=== PATIENT | male | born 1960 | race Caucasian/White ===

== ENCOUNTER 2018-06-17 08:24 | Day surgery (SDC) | payer OTHER ==
[2018-05-29 11:49] VITALS: BMI 26.8
--- NOTE | 2018-06-16 14:42 | HP ---
HISTORY AND PHYSICAL DATE OF SERVICE: 06/17/2018 Mike Marx is a 58-year-old patient seen with progressive left knee pain. We discussed treatment options. He elected to proceed with arthroscopy. Consent was obtained. PAST MEDICAL HISTORY: Hypertension, gastroesophageal reflux disease. PAST SURGICAL HISTORY: Right knee ACL reconstruction. DAILY MEDICATIONS: 1. Cardura. 2. Lisinopril. 3. Omeprazole. ALLERGIES: None reported. SOCIAL HISTORY: Patient denies tobacco use. PHYSICAL EVALUATION LEFT KNEE: Range of motion is 0 to 120 degrees. Tenderness medial joint line. Positive medial Radha's. Ligaments stable. Hip rotation without pain. Distal neurovascular exam is intact. RADIOGRAPHS OF THE LEFT KNEE: Revealed mild osteoarthritis. An MRI of the left knee revealed medial meniscal tear. IMPRESSION: 1. Internal derangement of the left knee with medial meniscal tear. 2. Hypertension. 3. Gastroesophageal reflux disease. PLAN: Left knee arthroscopy with partial meniscectomy and debridement. MMODL / IJN: [id number] /
[~2018-06-17 08:24] MED LIST: DEXAMETHASONE SOD PHOSPHATE 10 MG/ML 1 ML VIAL IV ONE; LIDOCAINE 1% 20 ML VIAL (10MG/ML) FOR IV START INTRADERMA PRN; MIDAZOLAM 2 MG/2 ML VIAL IV PRN; ONDANSETRON 4 MG/2 ML VIAL IVP ONE; SCOPOLAMINE 1.5MG/72HR PATCH TRANSDERM ONE; ceFAZolin IN SWFI 2 GM/20 ML SYRINGE IVP ONE
[2018-06-17] MEDS: LACTATED RINGERS 1,000 ML IV SCH ×2 (10:59→11:18)
[2018-06-17] MEDS ORDERED: MIDAZOLAM 2 MG/2 ML VIAL ONE (11:23)
[2018-06-17] MEDS ORDERED: fentaNYL (PF) 50 MCG/ML 2 ML AMP ONE (11:23)
[2018-06-17] MEDS ORDERED: PROPOFOL 10 MG/ML 20 ML VIAL IV ONE (11:23)
[2018-06-17] MEDS ORDERED: LIDOCAINE 1% INJ 10MG/ML (20 ML MDV) ONE (11:23)
[2018-06-17] MEDS ORDERED: ONDANSETRON 4 MG/2 ML VIAL ONE (11:23)
[2018-06-17] MEDS ORDERED: BUPIVACAIN-EPI 0.25%-1:200,000 30 ML VIAL INTRAARTIC ONE (11:41)
[2018-06-17] MEDS: HYDROmorphone 0.5 MG/0.5 ML SYRINGE IVP PRN ×4 (12:15→12:40)
[2018-06-17 12:22] VITALS: TEMP 97.1
--- NOTE | 2018-06-17 12:24 | P.OP ---
Date of Procedure: 06/17/18 Preoperative Diagnosis: Internal derangement left knee Postoperative Diagnosis: 1. Tear medial meniscus left knee 2. Reactive synovitis medial and suprapatellar compartments left knee 3. Medial plica left knee Procedure(s) Performed: 1. Arthroscopic partial medial meniscectomy left knee 2. Arthroscopic partial synovectomy medial and suprapatellar compartments left knee 3. Arthroscopic resection medial plica left knee Anesthesia: GETA, local Surgeon: Ronaldo Pham Estimated Blood Loss (ml): 5 Pathology: none sent Condition: stable Disposition: PACU Indications for Procedure: 58-year-old patient seen with progressive left knee pain. After treatment options were discussed, he elected to proceed with arthroscopy. Operative Findings: see description of procedure Description of Procedure: Patient was taken to the operative suite. Patient underwent a general anesthetic by the department of anesthesia. Patient was given preoperative antibiotics. The left lower extremity was placed in a well-padded arthroscopic leg gutierrez. The left leg was prepped and draped in the normal sterile orthopedic fashion. A lateral parapatellar and suprapatellar incision was made. Trochars were inserted. Arthroscopy was initiated. Suprapatellar pouch revealed diffuse thick reactive synovitis. The patellofemoral joint appeared articulate congruently. There was grade 1 chondromalacia with no osteochondral tears. The scope was guided into the medial gutter. There was a medial plica present. It did seem to impinge the medial femoral condyle with range of motion. The scope was then guided into the medial compartment. A medial parapatellar incision was made. Trocar inserted followed by probe. There was a complex tear involving the posterior horn medial meniscus. There was thick reactive synovitis anteriorly. No significant chondromalacia was present. I performed a partial medial meniscectomy down to stable tissue. I performed a partial synovectomy decompressing the reactive synovitis anteriorly. The residual meniscus was stable. There was good decompression of the synovitis. Scope and probe were then guided into the intercondylar notch. Cruciates were identified, probed and found to be stable. The scope and probe were then guided into lateral compartment. Lateral meniscus appeared intact with no evidence for tear. There was no significant chondromalacia. There was no synovitis. The scope was in guided back into the suprapatellar compartment. Reduced the motorized shaver into the suprapatellar compartment. I debrided some piecemeal fragments of meniscus I encountered. I resected that medial plica. I performed a partial synovectomy decompressing the thick reactive synovitis. The shaver was removed. The knee was taken through range of motion and it was complete resection of the plica. There was good decompression of synovitis. I took one more look on the entire knee, no residual debris. Instruments were now removed from the joint. The joint was infiltrated with .25 % Marcaine. Steri-Strips were applied to the portal sites. Sterile dressings were applied. The patient was placed into a LUPE hose. No tourniquet was utilized. The patient was awakened, transferred to a bed and taken to recovery stable satisfactory condition.
[2018-06-17 12:30] VITALS: RESP 16
[2018-06-17] MEDS ORDERED: HYDROcodone/APAP 7.5-325MG 1 EACH TAB PO ONE (13:14)
[2018-06-17 13:46] VITALS: BP 121/79; PULSE 85
== END 2018-06-17 14:00 | disposition home or self-care (01) ==
LOC: OR 08:24
PROVIDERS: ATTEND Orthopaedic Surgery
DX: S83.242A Other tear of medial meniscus, current injury, left knee, initial encounter (principal); X58.XXXA Exposure to other specified factors, initial encounter; M65.862 Other synovitis and tenosynovitis, left lower leg; M67.52 Plica syndrome, left knee; I10 Essential (primary) hypertension; K21.9 Gastro-esophageal reflux disease without esophagitis; Z79.899 Other long term (current) drug therapy
CPT/HCPCS: 29881; J2250; J1100; J2405; J2001; J3010; J2704; J1170; J0690

== ENCOUNTER → 2020-10-04 | Outpatient (CLI) | payer OTHER ==
--- NOTE | 2020-10-04 23:23 | MR ---
EXAMINATION TYPE: MR knee RT wo con DATE OF EXAM: 10/04/2020 COMPARISON: None HISTORY: Right knee pain, knee locks, kneecap is painful. Multiplanar multiecho imaging of the right knee was performed without contrast. Exam limited somewhat by metal artifact from pins involving the lateral aspect of the distal femur. T here is spurring of the femoral and tibial condyles. The anterior and posterior cruciate ligaments ap pear intact. There is some laxity of the anterior cruciate ligament. There is metal artifact that obs cures the attachment on the femur. There is large horizontal tear of the posterior horn lateral meniscus. There is also large horizontal tear anterior horn lateral meniscus. There is thinning of the posterior horn medial meniscus. There is abnormal increased signal throughout much of the posterior horn medial meniscus. There is 1 cm irr egular area of fluid signal in the anterior aspect of the proximal tibia consistent with postsurgical changes from reconstructive surgery. The collateral ligaments are intact. There is narrowing of the medial joint space. There is thinning of the anterior horn medial meniscus. There is no evidence of a ny significant joint effusion. IMPRESSION: Previous surgery. There is probably a partial tear anterior cruciate ligament. Exam limited by metal artifact. Complex extensive tears of the medial and lateral menisci as above. Osteoarthritic hypertrophic aguirre es of the femoral and tibial condyles. Medial joint space narrowing.
== END | disposition home or self-care (01) ==
LOC: RADMRIMAIN 13:09
PROVIDERS: ATTEND Orthopaedic Surgery
DX: S83.241A Other tear of medial meniscus, current injury, right knee, initial encounter (principal); S83.281A Other tear of lateral meniscus, current injury, right knee, initial encounter; M17.11 Unilateral primary osteoarthritis, right knee

== ENCOUNTER 2020-12-07 12:21 | Day surgery (SDC) | payer OTHER ==
[2020-12-05 14:11] VITALS: BMI 27.3
--- NOTE | 2020-12-06 17:58 | HP ---
HISTORY AND PHYSICAL REASON FOR ADMISSION: Surgery scheduled for 12/07/2020 HISTORY OF PRESENT ILLNESS: Mike came here as a 60-year-old patient seen with progressive right knee pain. We discussed options. He elected to proceed with arthroscopy. Consent was obtained. PAST MEDICAL HISTORY: Hypertension, gastroesophageal reflux disease. PAST SURGICAL HISTORY: Right knee arthroscopy. DAILY MEDICATIONS: Ibuprofen, lisinopril, omeprazole. ALLERGIES: None. SOCIAL HISTORY: Denies tobacco use. PHYSICAL EVALUATION OF THE RIGHT KNEE: Range of motion is -2/3-110. Mild effusion. Tenderness along the medial and lateral joint line. Positive medial Radha's. Positive lateral Radha's. Ligaments stable. Hip rotation without pain. Distal neurovascular exam intact. RADIOGRAPHS: Radiographs of the right knee revealed moderate osteoarthritis. Metallic screws consistent with history of previous ACL reconstruction. Right knee MRI medial lateral meniscal tear. IMPRESSION: 1. Internal derangement of right knee with medial and lateral meniscal tears. 2. Right knee osteoarthritis. 3. Hypertension. 4. Gastroesophageal reflux disease. PLAN: Right knee arthroscopy with partial meniscectomy and debridement. Surgery is scheduled for 12/07/2020. MMODL / IJN: [id number] /
[~2020-12-07 12:21] MED LIST changes: -DEXAMETHASONE SOD PHOSPHATE 10 MG/ML 1 ML VIAL IV ONE; +DEXAMETHASONE SOD PHOSPHATE 4 MG/ML 1 ML VIAL IV ONE; +HYDROmorphone 0.5 MG/0.5 ML SYRINGE IVP PRN; +LACTATED RINGERS 1,000 ML IV SCH; -LIDOCAINE 1% 20 ML VIAL (10MG/ML) FOR IV START INTRADERMA PRN; -SCOPOLAMINE 1.5MG/72HR PATCH TRANSDERM ONE; -ceFAZolin IN SWFI 2 GM/20 ML SYRINGE IVP ONE
[2020-12-07] MEDS ORDERED: LIDOCAINE 1% (10MG/ML) FOR IV START INTRADERMA ONE (12:54)
[2020-12-07] MEDS ORDERED: HYDROmorphone (PF) 1 MG/ML ONE (13:48)
[2020-12-07] MEDS ORDERED: MIDAZOLAM 2 MG/2 ML VIAL ONE (13:48)
[2020-12-07] MEDS ORDERED: fentaNYL (PF) 50 MCG/ML 2 ML AMP ONE (13:48)
[2020-12-07] MEDS ORDERED: PROPOFOL 10 MG/ML 20 ML VIAL IV ONE (13:48)
[2020-12-07] MEDS ORDERED: SUCCINYLCHOLINE CHLORIDE 100 MG/5 ML SYR IV ONE (13:48)
[2020-12-07] MEDS ORDERED: LIDOCAINE 1% INJ 10MG/ML (20 ML MDV) ONE (13:48)
[2020-12-07] MEDS ORDERED: BUPIVACAINE (PF) 0.25% 30 ML VIAL SQ ONE ×2 (14:11→14:35)
[2020-12-07 14:58] VITALS: TEMP 96.8
--- NOTE | 2020-12-07 14:58 | P.OP ---
Date of Procedure: 12/07/20 Preoperative Diagnosis: Internal derangement right knee Postoperative Diagnosis: 1. Tear medial and lateral meniscus right knee 2. Grade 1/2 chondromalacia medial femoral condyle right knee 3. Partial ACL tear right knee 4. Reactive synovitis medial, lateral and suprapatellar compartments right knee Procedure(s) Performed: 1. Arthroscopic partial medial and lateral meniscectomy right knee 2. Arthroscopic chondroplasty medial femoral condyle right knee 3. Arthroscopic debridement partial ACL tear right 4. Arthroscopic partial synovectomy medial, lateral and suprapatellar compartments right knee Anesthesia: DEREKA, local Surgeon: Ronaldo Pham Estimated Blood Loss (ml): 7 Pathology: none sent Condition: stable Disposition: PACU Indications for Procedure: 60-year-old patient seen with progressive right knee pain. We discussed treatment options. He elected to proceed with arthroscopy. Operative Findings: See description of procedure Description of Procedure: Patient was taken to the operative suite. Patient underwent a general anesthetic by the department of anesthesia. Patient was given preoperative antibiotics. The right lower extremity was placed in a well-padded arthroscopic leg gutierrez. The right leg was prepped and draped in the normal sterile orthopedic fashion. A lateral parapatellar and suprapatellar incision was made. Trochars were inserted. Arthroscopy was initiated. Suprapatellar pouch revealed diffuse thick reactive synovitis. The patellofemoral joint appeared to articulate congruently. There was grade 1 chondromalacia with no osteochondral tears present. The scope was guided into the medial gutter. No loose bodies or plica were identified. The scope was then guided into the medial compartment. A medial parapatellar incision was made. Trocar inserted followed by probe. There was a complex tear involving the posterior horn and midbody of the medial meniscus. There were grade 1/2 chondromalacia changes of the medial femoral condyle with some small osteochondral tears present. There was thick reactive synovitis anteriorly. I performed a partial medial meniscectomy getting down to stable meniscal tissue. I performed a chondroplasty of the medial femoral condyle getting down to stable osteochondral tissue. I performed a partial synovectomy decompressing the reactive synovitis. The shaver was removed. The residual meniscus was stable. The residual osteochondral surface was stable. There was good decompression of the synovitis. Scope and probe were then guided into the intercondylar notch. There was some partial tearing of the anterior cruciate ligament. I used a motorized shaver and debrided those fibers. The residual ACL which was about 50-60% appeared stable. The PCL was stable. The scope and probe were then guided into lateral compartment. There was a complex tear involving the posterior horn and midbody lateral meniscus. There were grade 1 chondramalacia changes of the lateral femoral condyle. There was thick reactive synovitis anteriorly. I performed a partial lateral meniscectomy getting down to stable meniscal tissue. I performed a partial synovectomy decompressing the thick reactive synovitis. The shaver was removed. The residual meniscus was probed and found to be stable. There was good decompression of synovitis. The scope was in guided back into the suprapatellar compartment. I introduced a motorized shaver into the super patellar compartment. I debrided some piecemeal fragments of meniscus I encountered. I performed a partial synovectomy. The shaver was removed. I took one more look on the entire knee, no residual debris. Instruments were now removed from the joint. The joint was infiltrated with .25% Marcaine. Steri-Strips were applied to the portal sites. Sterile dressings were applied. The patient was placed into a LUPE hose. No tourniquet was utilized. The patient was awakened, transferred to a bed and taken to recovery stable satisfactory condition.
[2020-12-07] MEDS ORDERED: KETOROLAC 15 MG/ML 1 ML VIAL IVP ONE (15:00)
[2020-12-07] MEDS: HYDROmorphone 1 MG/ML 1 ML SYRINGE IVP ONE ×2 (15:10→15:15)
[2020-12-07] MEDS ORDERED: SODIUM CHLORIDE 0.9% 1,000 ML IV ONE (15:23)
[2020-12-07 15:59] VITALS: RESP 18
[2020-12-07] MEDS ORDERED: HYDROcodone/APAP 7.5-325MG 1 EACH TAB PO ONE (16:05)
[2020-12-07] MEDS ORDERED: HYDROcodone/APAP 7.5-325MG 1 EACH TAB ONE (16:06)
[2020-12-07 16:27] VITALS: BP 135/83; PULSE 68
== END 2020-12-07 16:37 | disposition home or self-care (01) ==
LOC: OR 12:21
PROVIDERS: ATTEND Orthopaedic Surgery
DX: S83.241A Other tear of medial meniscus, current injury, right knee, initial encounter (principal); S83.281A Other tear of lateral meniscus, current injury, right knee, initial encounter; K21.9 Gastro-esophageal reflux disease without esophagitis; I10 Essential (primary) hypertension; Z79.899 Other long term (current) drug therapy
CPT/HCPCS: 29880; 29876; J2250; J1100; J0690; J2405; J2001; J3010; J1170 ×2; J1885; J0330; J2704

== ENCOUNTER 2020-12-12 19:37 | Emergency (ER) | payer OTHER ==
[2020-12-12 20:09] VITALS: RESP 16
--- NOTE | 2020-12-12 20:42 | ED ---
Lower Extremity Injury HPI - General Chief Complaint: Extremity Injury, Lower Stated Complaint: sent from urgent care Time Seen by Provider: 12/12/20 20:14 Source: patient Mode of arrival: wheelchair Limitations: no limitations - History of Present Illness Initial Comments: Patient is a 60-year-old male presenting to the emergency department with concer ns of a possible DVT of the right lower extremity. He is 5 days status post right meniscal surgery with Dr. Payan. He states over the past few days he's felt "a little bit off." He states he's been having low-grade temperatures at home of 99.9. He is also been having decreased appetite, some mild nausea. No vomiting, he's been having regular bowel movements. He was prescribed [place] for pain, he takes occasionally. He is having some mild discomfort of his right knee. He states he went to urgent care today, who did a chest x-ray, this was normal. They sent him into the ER for rule out of DVT secondary to the low- grade temperatures and discomfort of his right leg. He has no history of DVTs, he has been taking a baby aspirin. He denies any numbness or tingling into the right lower extremity, no significant swelling. He denies any chest pain or shortness of breath, no cough. He denies dysuria. He has no further complaints at this time. Upon arrival to the ER, his vitals are stable. - Related Data Home Medications Medication Instructions Recorded Confirmed Omeprazole [PriLOSEC] 20 mg PO AC-BRKFST 05/29/18 12/12/20 lisinopriL 20 mg PO DAILY 05/29/18 12/12/20 Finasteride [Proscar] 5 mg PO HS 06/12/18 12/12/20 Doxazosin [Cardura] 1 mg PO HS 12/05/20 12/12/20 Ibuprofen [Motrin] 800 mg PO Q8H PRN 12/05/20 12/12/20 HYDROcodone/APAP 7.5-325MG [[place] 1 tab PO Q6HR PRN 12/12/20 12/12/20 7.5] Previous Rx's Medication Instructions Recorded Ondansetron Odt [Zofran Odt] 4 mg PO Q8HR PRN #10 tab 12/12/20 Allergies Allergy/AdvReac Type Severity Reaction Status Date / Time No Known Allergies Allergy Verified 12/12/20 23:16 Review of Systems ROS Statement: Those systems with pertinent positive or pertinent negative responses have been documented in the HPI. ROS Other: All systems not noted in ROS Statement are negative. Past Medical History Past Medical History: GERD/Reflux, Hearing Disorder / Deafness, Hypertension, Musculoskeletal Disorder, Prostate Disorder Additional Past Medical History / Comment(s): Diff w/ high freq sounds. BPH. Rt knee pain History of Any Multi-Drug Resistant Organisms: None Reported Past Surgical History: Orthopedic Surgery Additional Past Surgical History / Comment(s): ACL Replacement RIGHT KNEE (1986 IN [place]); Exc "some bolts" in Rt knee. Lt knee scope 2018 knee surgery 07 dec 2020 Past Anesthesia/Blood Transfusion Reactions: No Reported Reaction Past Psychological History: No Psychological Hx Reported Smoking Status: Never smoker Past Alcohol Use History: None Reported Past Drug Use History: None Reported - Past Family History Brother(s) Family Medical History: Cancer Additional Family Medical History / Comment(s): Colon cancer, hx exposure to [employer] General Exam - General Exam Comments Initial Comments: GENERAL: Patient is well-developed and well-nourished. Patient is nontoxic and in no acute distress. HEAD: Atraumatic, normocephalic. EYES: Pupils equal round and reactive to light, extraocular movements intact, sclera anicteric, conjunctiva are normal. Eyelids were unremarkable. ENT: TMs normal, nares patent, oropharynx clear without exudates. Moist mucous membranes. NECK: Normal range of motion, supple without lymphadenopathy or JVD. LUNGS: Unlabored respirations. Breath sounds clear to auscultation bilaterally and equal. No wheezes rales or rhonchi. HEART: Regular rate and rhythm without murmurs, rubs or gallops. ABDOMEN: Soft, nontender, normoactive bowel sounds. No guarding, no rebound. No masses appreciated. : Deferred MUSCULOSKELETAL: Patient is status post 5 days and the surgical surgery, incisions look clean, dry, intact. There is no erythema, mild to moderate swelling, consistent with postsurgical. There is no swelling of the right ankle, some mild discomfort of the right calf. He is neurovascular intact. No clubbing or cyanosis. NEUROLOGICAL: Patient is alert and oriented x 3. Motor and sensory are also intact. Cranial nerves II through XII grossly intact. Symmetrical smile. Normal speech, normal gait. PSYCH: Normal mood, normal affect. SKIN: Warm, Dry, normal turgor, no rashes. Postsurgical incisions of the right knee, no erythema, no signs of infection. Limitations: no limitations Course Vital Signs 12/12/20 12/12/20 20:04 23:15 Temperature 98.0 F 98.1 F Pulse Rate 84 87 Respiratory 16 16 Rate Blood Pressure 157/94 147/93 O2 Sat by Pulse 96 100 Oximetry Medical Decision Making - Medical Decision Making Patient is a 60-year-old male, currently 5 days postop right meniscal repair by Dr. Payan. Sent in from urgent care to rule out a possible DVT was right lo wer leg. Having intermittent nausea, low-grade intermittent fevers. Chest x- ray urgent care today was normal. Vital signs are stable, he is afebrile here. His incisions are clean, dry and intact, no eyes infection. Does have some mild to moderate swelling, consistent with post surgical. Labs are unremarkable, ultrasound reveals no evidence of DVT. Discussed these findings with the patient. He remains afebrile the ER. I recommended following up with the surgeon. Return parameters were discussed with the patient and he verbalized understanding. Case discussed with Dr. Hines. - Lab Data Result diagrams: 12/12/20 21:15 12/12/20 20:30 Lab Results 12/12/20 12/12/20 Range/Units 20:30 21:15 WBC 8.5 (3.8-10.6) k/uL RBC 4.04 L (4.30-5.90) m/uL Hgb 12.2 L (13.0-17.5) gm/dL Hct 36.5 L (39.0-53.0) % MCV 90.4 (80.0-100.0) fL MCH 30.2 (25.0-35.0) pg MCHC 33.4 (31.0-37.0) g/dL RDW 13.2 (11.5-15.5) % Plt Count 351 (150-450) k/uL MPV 8.2 Neutrophils % 66 % Lymphocytes % 23 % Monocytes % 8 % Eosinophils % 2 % Basophils % 1 % Neutrophils # 5.6 (1.3-7.7) k/uL Lymphocytes # 1.9 (1.0-4.8) k/uL Monocytes # 0.7 (0-1.0) k/uL Eosinophils # 0.1 (0-0.7) k/uL Basophils # 0.0 (0-0.2) k/uL Sodium 140 (137-145) mmol/L Potassium 4.6 (3.5-5.1) mmol/L Chloride 104 (98-107) mmol/L Carbon Dioxide 28 (22-30) mmol/L Anion Gap 8 mmol/L BUN 22 H (9-20) mg/dL Creatinine 0.97 (0.66-1.25) mg/dL Est GFR (CKD-EPI)AfAm >90 (>60 ml/min/1.73 sqM) Est GFR (CKD-EPI)NonAf 86 (>60 ml/min/1.73 sqM) Glucose 97 (74-99) mg/dL Calcium 9.0 (8.4-10.2) mg/dL Total Bilirubin 0.1 L (0.2-1.3) mg/dL AST 19 (17-59) U/L ALT 25 (4-49) U/L Alkaline Phosphatase 90 (38-126) U/L Total Protein 6.5 (6.3-8.2) g/dL Albumin 3.6 (3.5-5.0) g/dL Disposition Clinical Impression: Right leg pain, Nausea Disposition: HOME SELF-CARE Condition: Stable Instructions (If sedation given, give patient instructions): Normal Exam (ED) Additional Instructions: Please return to the Emergency Department if symptoms worsen or any other concerns. Labs are normal today, ultrasound shows no evidence of DVT of the right leg. Please continue with your already prescribed pain medicine, ibuprofen. Please follow-up with your surgeon if symptoms persist. Prescriptions: Ondansetron Odt [Zofran Odt] 4 mg PO Q8HR PRN #10 tab PRN Reason: Nausea Is patient prescribed a controlled substance at d/c from ED?: No Referrals: Nya Wolff DO [Primary Care Provider] - 1-2 days Ronaldo Pham DO [Doctor of Osteopathic Medicine] - 1-2 days Time of Disposition: 23:26
[2020-12-12] MEDS ORDERED: HYDROcodone/APAP 7.5-325MG 1 EACH TAB PO ONE (21:07)
[2020-12-12 21:22] LABS: Basophils % (A) 1 %; Eosinophils # (A) 0.1 k/uL (0-0.7); Eosinophils % (A) 2 %; HCT 36.5 % (39.0-53.0); HGB 12.2 gm/dL (13.0-17.5); Lymphocytes # (A) 1.9 k/uL (1.0-4.8); Lymphocytes % (A) 23 %; MCH 30.2 pg (25.0-35.0); MCHC 33.4 g/dL (31.0-37.0); MCV 90.4 fL (80.0-100.0); Mean Platelet Volume 8.2; Monocytes # (A) 0.7 k/uL (0-1.0); Monocytes % (A) 8 %; Neutrophils # (A) 5.6 k/uL (1.3-7.7); Neutrophils % (A) 66 %; Platelet Count 351 k/uL (150-450); RBC 4.04 m/uL (4.30-5.90); RDW 13.2 % (11.5-15.5); WBC 8.5 k/uL (3.8-10.6)
[2020-12-12 21:32] LABS: ALT 25 U/L (4-49); AST 19 U/L (17-59); African American GFR (CKD) >90 (>60 ml/min/1.73 sqM); Albumin 3.6 g/dL (3.5-5.0); Alkaline Phosphatase 90 U/L (38-126); Anion Gap 8 mmol/L; Blood Urea Nitrogen 22 mg/dL (9-20); Carbon Dioxide 28 mmol/L (22-30); Chloride 104 mmol/L (98-107); Glucose 97 mg/dL (74-99); Non-African American GFR(CKD) 86 (>60 ml/min/1.73 sqM); Potassium 4.6 mmol/L (3.5-5.1); Sodium 140 mmol/L (137-145); Total Bilirubin 0.1 mg/dL (0.2-1.3); Total Protein 6.5 g/dL (6.3-8.2)
[2020-12-12 23:19] VITALS: BP 147/93; PULSE 87; TEMP 98.1
--- NOTE | 2020-12-12 23:24 | US ---
EXAMINATION TYPE: US venous doppler duplex LE RT DATE OF EXAM: 12/12/2020 10:52 PM COMPARISON: NONE CLINICAL HISTORY: recent surgery, low grade temp, swelling. Recent right knee surgery on 12/07/20. No hx of DVT. Patient takes baby aspirin. SIDE PERFORMED: Right TECHNIQUE: The lower extremity deep venous system is examined utilizing real time linear array sonog noemi with graded compression, doppler sonography and color-flow sonography. VESSELS IMAGED: Common Femoral Vein Deep Femoral Vein Greater Saphenous Vein * Femoral Vein Popliteal Vein Small Saphenous Vein * Proximal Calf Veins (* superficial vessels) Slightly limited due to edema. Right Leg: No evidence of DVT in veins imaged at this time. Duplicate mid femoral vein segment seen. IMPRESSION: No sign of deep vein thrombosis in the right leg.
== END 2020-12-12 23:42 | disposition home or self-care (01) ==
LOC: EC 19:37
DX: M79.661 Pain in right lower leg (principal); R11.0 Nausea; K21.9 Gastro-esophageal reflux disease without esophagitis; I10 Essential (primary) hypertension; N40.0 Benign prostatic hyperplasia without lower urinary tract symptoms
CPT/HCPCS: 36415; 80053; 85025; 99284

== ENCOUNTER → 2022-04-16 | Outpatient (CLI) | payer OTHER ==
--- NOTE | 2022-04-16 16:51 | MR ---
EXAMINATION TYPE: MR lumbar spine wo con DATE OF EXAM: 04/16/2022 4:37 PM COMPARISON: None. CLINICAL INDICATION:Male, 62 years old with history of M54.50 Low back pain; TECHNIQUE: Multi planar, multi sequence imaging was performed utilizing: T1-weighted, T2-weighted, a nd turbo inversion recovery imaging of the lumbar spine. IV Contrast: None FINDINGS: Alignment: The lumbar vertebral bodies have preserved heights and alignment. Cord: The conus medullaris and the distal spinal cord appear unremarkable with regards to their signa l intensity and morphology. Bones/Discs: No evidence of bony edema on inversion recovery sequences. Scattered small areas of susp ected hemangiomas are focal fat within the vertebral bodies that are high T1/high T2 signal in our co nspicuous on fat saturation sequences. Multilevel degenerative disc disease is noted and most pronoun lincoln at the L4 and L5. Scattered Modic endplate changes are minimal an most proximal L5-S1. L5 limbus vertebrae. L1-L2: No significant disc pathology. Spinal canal is patent. The neural foramen are patent. L2-L3: No significant disc pathology. Spinal canal is patent. The neural foramen are patent. L3-L4: No significant disc pathology. Spinal canal is patent. Facet joint arthropathy with moderate l eft and mild right neural foraminal stenosis. L4-L5: Disc bulge without significant spinal canal stenosis.Facet joint arthropathy with severe left and moderate to severe right neural foraminal stenosis L5-S1: Central disc protrusion without significant spinal canal stenosis. There is 3 mm of inferior m igration. Other findings: Bilateral renal peripelvic cysts are noted. IMPRESSION: 1. No definitive evidence significant spinal canal stenosis. 2. L4-L5 severe left and moderate to severe right neural foraminal stenosis secondary to facet joint arthropathy. 3. L5-S1 central disc protrusion without significant spinal canal stenosis.
== END | disposition home or self-care (01) ==
LOC: RADMRIMAIN 15:55
PROVIDERS: ATTEND Physician Assistant
DX: M48.061 Spinal stenosis, lumbar region without neurogenic claudication (principal); M47.816 Spondylosis without myelopathy or radiculopathy, lumbar region
CPT/HCPCS: 72148

== ENCOUNTER 2022-04-18 06:53 | Day surgery (SDC) | payer OTHER ==
[~2022-04-18 06:53] MED LIST changes: -DEXAMETHASONE SOD PHOSPHATE 4 MG/ML 1 ML VIAL IV ONE; -HYDROmorphone 0.5 MG/0.5 ML SYRINGE IVP PRN; -MIDAZOLAM 2 MG/2 ML VIAL IV PRN; -ONDANSETRON 4 MG/2 ML VIAL IVP ONE
[2022-04-18] MEDS ORDERED: LACTATED RINGERS 1,000 ML IV ONE (07:38)
[2022-04-18 07:40] VITALS: TEMP 97.8
[2022-04-18] MEDS ORDERED: LIDOCAINE 1% (10MG/ML) FOR IV START INTRADERMA ONE (07:40)
[2022-04-18] MEDS ORDERED: PROPOFOL 10 MG/ML 20 ML VIAL IV ONE (07:48)
--- NOTE | 2022-04-18 08:00 | P.GSHP ---
History of Present Illness H&P Date: 04/18/22 Chief Complaint: Screening Colonoscopy This a 62-year-old male who presents today for screening colonoscopy. Patient denies a significant GI complaints. His last colonoscopy was over 10 years ago. Past Medical History Past Medical History: GERD/Reflux, Hearing Disorder / Deafness, Hypertension, Musculoskeletal Disorder, Prostate Disorder Additional Past Medical History / Comment(s): Diff w/ high freq sounds. BPH. Rt knee pain History of Any Multi-Drug Resistant Organisms: None Reported Past Surgical History: Orthopedic Surgery Additional Past Surgical History / Comment(s): ACL Replacement RIGHT KNEE (1986 IN [place]); Exc "some bolts" in Rt knee. Lt knee scope 2018 knee surgery 07 dec 2020 Past Anesthesia/Blood Transfusion Reactions: No Reported Reaction Additional Past Anesthesia/Blood Transfusion Reaction / Comment(s): no blood transfusion hx Smoking Status: Never smoker - Past Family History Brother(s) Family Medical History: Cancer Additional Family Medical History / Comment(s): Colon cancer, hx exposure to [employer] Medications and Allergies Home Medications Medication Instructions Recorded Confirmed Type Omeprazole [PriLOSEC] 20 mg PO AC-BRKFST 05/29/18 04/16/22 History lisinopriL 20 mg PO DAILY 05/29/18 04/16/22 History Finasteride [Proscar] 5 mg PO HS 06/12/18 04/16/22 History Doxazosin [Cardura] 1 mg PO HS 12/05/20 04/16/22 History Ibuprofen [Motrin] 800 mg PO Q8H PRN 12/05/20 04/16/22 History Allergies Allergy/AdvReac Type Severity Reaction Status Date / Time No Known Allergies Allergy Verified 04/16/22 15:01 Surgical - Exam Vital Signs Temp Pulse Resp BP Pulse Ox 97.8 F 78 18 167/94 97 04/18/22 07:38 04/18/22 07:38 04/18/22 07:38 04/18/22 07:38 04/18/22 07:38 - General well developed, well nourished, no distress - Eyes PERRL - ENT normal pinna - Neck no masses - Respiratory normal expansion - Cardiovascular Rhythm: regular - Abdomen Abdomen: soft, non tender Assessment and Plan Assessment: We'll perform screening colonoscopy
--- NOTE | 2022-04-18 08:02 | P.OP ---
Date of Procedure: 04/18/22 Preoperative Diagnosis: Screening colonoscopy Postoperative Diagnosis: External hemorrhoids Normal colon Procedure(s) Performed: Colonoscopy Anesthesia: MAC Surgeon: Alban Parker Pathology: none sent Condition: stable Disposition: PACU Description of Procedure: The patient's placed on the endoscopy table in the lateral position. He received IV sedation. Digital rectal exam was performed. This revealed external hemorrhoids. The flexible colonoscope was then placed patient anus and passed throughout the entire colon. The ileocecal valve was visualized. The cecum, ascending and transverse colon appeared normal. The descending and sigmoid colon appeared normal. The scope was then brought back the rectum and this was normal. Scope was withdrawn for patient.
[2022-04-18] MEDS ORDERED: IV FLUID CONTINUATION 1,000 ML IV ONE (08:05)
[2022-04-18 08:12] VITALS: RESP 16
[2022-04-18 08:25] VITALS: BP 134/76; PULSE 72
== END 2022-04-18 08:41 | disposition home or self-care (01) ==
LOC: ORWHC2ENDO 06:53
PROVIDERS: ATTEND Surgery
DX: Z12.11 Encounter for screening for malignant neoplasm of colon (principal); K64.4 Residual hemorrhoidal skin tags; K21.9 Gastro-esophageal reflux disease without esophagitis; I10 Essential (primary) hypertension; Z87.39 Personal history of other diseases of the musculoskeletal system and connective tissue; Z87.430 Personal history of prostatic dysplasia; Z86.69 Personal history of other diseases of the nervous system and sense organs; Z96.651 Presence of right artificial knee joint; Z80.0 Family history of malignant neoplasm of digestive organs; Z79.899 Other long term (current) drug therapy
CPT/HCPCS: 45378; J2704

== ENCOUNTER → 2022-06-24 | Outpatient (CLI) | payer OTHER ==
[2022-06-24 08:44] VITALS: BP 127/86; PULSE 77; RESP 18; TEMP 98
--- NOTE | 2022-06-24 08:45 | P.PAINPG ---
PQRS Measure Charge Sheet Comment: HISTORY OF PRESENT ILLNESS: 62 yr old male as a referral from Judy RODRIGUEZ presents today w severe and chronic LBP secondary to disc bulges and facet arthropathy without myelopathy for evaluation. Pt states pain level is at 8 /10 in intensity, constant, localized in the lower lumbar spine where it meets the tailbone, dull & pressure like in character w shooting pain towards the spine. Pain is provoked by sitting for periods of 30 min or more, twisting, bending. Pain is alleviated by medications (Celebrex, ibuprofen), topicals, PT integrated with massage times 5 weeks in March 2022, use of a hot tub every morning, repositioning and rest. PMH: GERD, Hearing Disorder, HTN, BPH PSH: R ACL Repair (1986 in [place]), R Knee Hardware placement, L Knee Arthroscopy (2017, 2020), SH: Never smoker, No ETOH abuse, No illicit drug use. Exposed to [employer]. FH: Brother- [place]. All: NKDA Meds: See list REVIEW OF ORGAN SYSTEMS: CONSTITUTIONAL: No fevers or chills. No recent weight loss. NEUROLOGICAL: + numbness and tingling along the distal extremities. No seizure disorders or headaches. MUSCULOSKELETAL: + pain PSYCHIATRIC: Denies current depression or suicidal thoughts. Physical Examinations : Constitutional : Cooperative , not in acute distress . Neurologic : Cranial nerve II to XII intact. No focal neurological deficits. Psychiatric : alert & oriented x 3. Matching mood & appropriate affect. Judgment & insight intact. Musculoskeletal : Cervical Spine Motor strength in the deltoid and biceps: Normal right side. Normal Left side Motor strength biceps and the wrist extensors: Normal right side . Normal left side Motor strength in the triceps muscle: Normal right side. Normal left side Deep tendon reflexes: Normal at the biceps. Normal at Brachioradialis. Normal at triceps Vertebral body tenderness to deep palpation over Cervical facet loading test: positive bilaterally Spurling test: positive bilaterally Neck distraction test: positive bilaterally Kait sign: positive bilaterally Lumbar spine Motor strength lower extremities ,thigh and legs 5/5 Right side , 5/5 Left side Deep tendon reflexes : Normal Knee Jerk. Normal Ankle Jerk Vertebral body tenderness over L5 Lumbar facet Loading Test: positive Right / positive Left Range of motion of the lumbar spine Flexion 30 degrees, extension 10 degrees Straight Leg Raise test: Left/ Right positive at degree Eder test: positive right / positive left. Severe tenderness over the Sacroiliac joint on the Right / Left sides Gaenslen test: positive bilaterally Seated flexion test: positive bilaterally. Sacral spine : Severe tenderness over the Sacroiliac joint: right side / left side Range of motion: Flexion of the lumbar spine <60 degrees Range of motion: Extension of the lumbar spine <20 degrees Gaenslen's Test positive Silviano's Test positive Eder test: positive right side / left side Thigh Thrust Test Sacral Thrust Test Imaging: MRI without contrast of the lumbar spine from 04/16/22 reviewed Assessment/ Plan : Lumbar disc bulge Recommendation of MORGAN L5-S1. May need a series of injections, up to 3 within a 6 mo period, for optimal pain relief. Risks, benefits of procedure discussed and patient verbalized understanding. Admits to aspirin or anti- coagulant use or medical history of diabetes. Protocol for discontinuation/ continuation of medications ramon procedure discussed. All questions answered. I have spent greater than 30 minutes on patient care today. Dr Swanson was available by phone for the evaluation of this patient. The time was used to review the medical records including relevant urine studies and Prescription history (MAPs), review of the available imaging, evaluation and examination of the patient, coordination of care with the medical staff and if applicable referring physicians, as well as creation of the medical record number PQRS Narrative: Smoking Status Never smoker Home Medications: Ambulatory Orders Omeprazole [PriLOSEC] 20 mg PO AC-BRKFST 05/29/18 lisinopriL 20 mg PO DAILY 05/29/18 Finasteride [Proscar] 5 mg PO HS 06/12/18 Doxazosin [Cardura] 1 mg PO HS 12/05/20 Ibuprofen [Motrin] 800 mg PO Q8H PRN 12/05/20 Controlled Substance Measures - Controlled Substance Measures Is patient prescribed a controlled substance at discharge?: No
== END ==
LOC: PNWHC3 08:10
PROVIDERS: ATTEND Anesthesiology
DX: M51.26 Other intervertebral disc displacement, lumbar region (principal); K21.9 Gastro-esophageal reflux disease without esophagitis; I10 Essential (primary) hypertension
CPT/HCPCS: 99211

== ENCOUNTER 2022-07-25 07:36 | Day surgery (SDC) | payer OTHER ==
[2022-07-22 15:07] VITALS: BMI 28.5
[2022-07-25 08:31] VITALS: RESP 16; TEMP 97.1
[2022-07-25] MEDS ORDERED: LACTATED RINGERS 1,000 ML IV ONE (08:35)
[2022-07-25] MEDS ORDERED: LIDOCAINE 1% (10MG/ML) FOR IV START INTRADERMA PRN (08:44)
[2022-07-25] MEDS ORDERED: LACTATED RINGERS 1,000 ML IV SCH (08:44)
[2022-07-25] MEDS ORDERED: fentaNYL (PF) 50 MCG/ML 2 ML AMP ONE (08:59)
[2022-07-25] MEDS ORDERED: MIDAZOLAM 2 MG/2 ML VIAL ONE (08:59)
[2022-07-25] MEDS ORDERED: IOPAMIDOL M200 10 ML VIAL ONE (08:59)
[2022-07-25] MEDS ORDERED: methylPREDNISolone ACETATE 80 MG/ML 1 ML VIAL ONE (08:59)
--- NOTE | 2022-07-25 09:10 | P.PCN ---
Date of Procedure: 07/25/22 Procedure(s) Performed: PREOPERATIVE DIAGNOSIS: 1- Lumbar Degenerative Disc Diseases 2-Lumbar spondylosis with Facet arthropathy without myelopathy. 3-lumbar foraminal stenosis POSTOPERATIVE DIAGNOSIS: Same as preop diagnosis. PROCEDURE 1. Lumbar epidural steroid injection under fluoroscopic guidance at the L5-S1 level. (Fluoroscopy imaging was available in radiology department) 2. Lumbar epidurogram. ANESTHESIA: moderate sedation with intravenous Versed 2 mg ,and fentanyle 50 Mcg Sedation start time : 903 Sedation end time : 907 EBL: Minimal PROCEDURE INDICATION: The patient with low back pain and radiculitis symptoms unresponsive to conservative treatment. Fluoroscopy was used to optimize visualization of the needle placement and to maximize safety. PROCEDURE DESCRIPTION / TECHNIQUE: The patient was seen and identified in the preoperative area. Risks, benefits, complications including but not limited to infections ,bleeding ,allergic reaction to the medications ,nerve damage and not complete pain releife , and alternatives were discussed with the patient. The patient agreed to proceed with the procedure and signed the consent. IV was started, and vital signs were stable. Patient was taken to the OR and time out was completed. The patient was placed in the prone position on procedure table and a pillow was placed under the abdomen to reduce lumbar lordosis. The lumbosacral area was prepped and draped in the usual sterile fashion.ere closely monitored during the procedure. Conscious sedation was used during the procedure to decrease patients anxiety. Vital signs was monitered during the entire procedure. Using anterior-posterior fluoroscopy, the L5-S1 interlaminar space was identified and the skin over this site was marked and then infiltrated with 1% lidocaine subcutaneously. Subsequently, a 20-gauge Tuohy epidural needle was inserted and advanced toward the epidural space using the ``Loss of resistance technique and guided by AP and lateral fluoroscopy. The correct needle position in the epidural space was verified with the injection of 2 mL of the water soluble contrast dye Isovue 300 contrast and observing an excellent epidurogram with the epidural spread of the dye, after negative aspiration for blood and CSF and in the absence of paresthesias. Again after negative aspiration, a 6 ml mixture containing 80 mg of Depo-medrol ( Preservetive Free ), and 2 ml of preservative free Normal Saline, and 2 ml of preservative free lidocaine 1% solution was injected and a washout of epidurogram was seen. Needle was withdrawn intact, skin was cleansed, and bandages were applied. COMPLICATIONS: None DISPOSITION / PLANS: The patient was placed in a supine position and transferred to the recovery area in a stable condition for observation. There was no e vidence of lower extremity motor or sensory deficit after the procedure. Patient was discharged from the recovery room after meeting discharge criteria. Home discharge instructions were given to the patient by the staff. The patient was reexamined prior to discharge. The patient will schedule a follow up in the clinic in 2-4 weeks.
[2022-07-25] MEDS ORDERED: IV FLUID CONTINUATION 1,000 ML IV ONE (09:12)
[2022-07-25 09:35] VITALS: BP 114/71; PULSE 66
--- NOTE | 2022-07-25 09:59 | FL ---
EXAMINATION TYPE: FL guided pain mgmt statistic DATE OF EXAM: 07/25/2022 CLINICAL HISTORY: Low back pain. TECHNIQUE: Fluoroscopy. COMPARISON: None. FINDINGS: Fluoroscopic guidance was provided during pain relief procedure performed by Dr. Swanson . A total of 1 second of fluoroscopic time was utilized during the procedure and 1 spot images are a cquired. Single image acquired shows needle localization at L5 level with contrast injection. IMPRESSION: As Above.
== END 2022-07-25 09:47 | disposition home or self-care (01) ==
LOC: ORPAIN 07:36
PROVIDERS: ATTEND Specialist
DX: M51.16 Intervertebral disc disorders with radiculopathy, lumbar region (principal); M47.26 Other spondylosis with radiculopathy, lumbar region; M48.061 Spinal stenosis, lumbar region without neurogenic claudication
CPT/HCPCS: 62323; J2250; J1040; J3010; Q9966

== ENCOUNTER → 2022-08-12 | Outpatient (CLI) | payer OTHER ==
[2022-08-12 14:26] VITALS: BP 146/96; PULSE 96; RESP 18; TEMP 97.9
--- NOTE | 2022-08-12 14:28 | P.PAINPG ---
PQRS Measure Charge Sheet Comment: A 62 yr old male with a history of severe and chronic LBP x 1 yr secondary to lumbar DDD and spondylosis with facet arthropathy without myelopathy presents today for evaluation s/p MORGAN L5-S1. Pt states he experienced 50% x 3 days s/p procedure. Pain level is provoked at 8 /10 in intensity, constant, localized in the lumbar spine, achy/ sharp in character w shooting towards the RLE. Pain is provoked by ice, any bending, any lifting. Pain is alleviated with PT x 8 wks in January - Feb 2022, home exercise regimen, heat, hot soaks nightly, meds, topicals, repositioning and rest. Interventional pain procedures completed include MORGAN L5-S1 x1 Patient is currently on Celebrex, Voltaren gel Patient denies any side effects of the medication(s), denies excessive drowsiness or sleepiness, denies suicidal ideation and reports that the current pain medication is helping to control the pain and improve activities of daily living. Patient denies any motor or sensory deficits. Patient denies any fever or night sweats, denies any change in the bowel movements or urination. Physical Examination: -Constitutional: Cooperative. Not in acute distress . - Neurologic: Cranial nerve II to XII intact. No focal neurological deficits. - Psychatric: Alert & oriented x 3. Matching mood & appropriate affect. Judgment and insight intact. - Musculoskeletal: Cervical spine: Muscle bulk/ tone/ strength in the bilateral upper extremities normal Vertebral body tenderness to palpation over Spurling test positive Distraction test positive Facet loading test positive Thoracic spine Muscle bulk / tone/ strength in the bilateral paraspinal muscles normal Vertebral body tender to palpation over Facet loading test positive Lumbar spine: Motor bulk/ tone/ strength lower extremities , thigh and legs : 5/5 Deep tendon reflexes : Normal Knee Jerk. Normal Ankle Jerk . Vertebral body tenderness to palpation over Lumbar Facet Loading Test positive jump reflex over BL L4-L5, L5-S1 facets Straight Leg Raise: positive at 30 degrees right side/ left side Gaenslen's Test positive Sacral spine : Severe tenderness over the Sacroiliac joint: right side / left side Range of motion: Flexion of the lumbar spine <60 degrees Range of motion: Extension of the lumbar spine <20 degrees Gaenslen's Test positive Eder test: positive right side / left side Thigh Thrust Test Sacral Thrust Test Assessment and plan: Chronic LBP secondary to lumbar DDD, spondylosis with facet arthropathy without myelopathy Recommendation of BL facet block of the medial branches L4-L5, L5-S1 #1. May need a series of injections, up until RFA, for optimal pain relief. Risks, benefits of procedure discussed and pt verbalized understanding. Admits to anticoagulant use or medical history of diabetes. Protocol for discontinuation/ continuation of medications ramon procedure discussed. All patient questions answered I have spent less than 30 minutes on patient care today. Dr Swanson was available by phone for the evaluation of this patient. The time was used to review the medical records including relevant urine studies and Prescription hi story (MAPs), review of the available imaging, evaluation and examination of the patient, coordination of care with the medical staff and if applicable referring physicians, as well as creation of the medical record PQRS Narrative: Smoking Status Never smoker Hx Alcohol Use (MH) No Home Medications: Ambulatory Orders Omeprazole [PriLOSEC] 20 mg PO AC-BRKFST 05/29/18 lisinopriL 20 mg PO DAILY 05/29/18 Finasteride [Proscar] 5 mg PO HS 06/12/18 Doxazosin [Cardura] 1 mg PO HS 12/05/20 Ibuprofen [Motrin] 800 mg PO DIRECTED PRN 12/05/20 Celecoxib [CeleBREX] 200 mg PO DAILY 07/22/22 Controlled Substance Measures - Controlled Substance Measures Is patient prescribed a controlled substance at discharge?: No
== END ==
LOC: PNWHC3 13:54
PROVIDERS: ATTEND Specialist
DX: M47.816 Spondylosis without myelopathy or radiculopathy, lumbar region (principal); M51.36 Other intervertebral disc degeneration, lumbar region; G89.29 Other chronic pain
CPT/HCPCS: 99211

== ENCOUNTER → 2022-09-30 | Outpatient (CLI) | payer OTHER ==
[2022-09-30 09:59] VITALS: BP 143/93; PULSE 87; RESP 18; TEMP 98.1
--- NOTE | 2022-09-30 14:38 | P.PAINPG ---
PQRS Measure Charge Sheet Comment: A 62 yr old male with a history of severe and chronic LBP secondary to lumbar DDD and spondylosis with facet arthropathy without myelopathy presents today for evaluation s/p BL facet block of the medial branches L4-L5, L5-S1 #1. Pt states he experienced 50 % pain relief x 1 day s/p procedure. Pain level is provoked at 9 /10 in intensity, constant, localized in the lumbar spine, burning in character w shooting towards the buttocks and BLEs. Pain is provoked by walking for periods of 20 min or more. Pain is alleviated with medications, topicoals, injections, PT x 5 wks in Mar 2022, home stretching regimen, repositioning and rest. Interventional pain procedures completed include BL MBB L3-L5 x1, MORGAN L5-S1 x1 Patient is currently on Ibu Patient denies any side effects of the medication(s), denies excessive drowsiness or sleepiness, denies suicidal ideation and reports that the current pain medication is helping to control the pain and improve activities of daily living. Patient denies any motor or sensory deficits. Patient denies any fever or night sweats, denies any change in the bowel movements or urination. Physical Examination: -Constitutional: Cooperative. Not in acute distress . - Neurologic: Cranial nerve II to XII intact. No focal neurological deficits. - Psychatric: Alert & oriented x 3. Matching mood & appropriate affect. Judgment and insight intact. - Musculoskeletal: Cervical spine: Muscle bulk/ tone/ strength in the bilateral upper extremities normal Vertebral body tenderness to palpation over Spurling test positive Distraction test positive Facet loading test positive TTP Thoracic spine Muscle bulk / tone/ strength in the bilateral paraspinal muscles normal Vertebral body tender to palpation over Facet loading test positive TTP Lumbar spine: Motor bulk/ tone/ strength lower extremities , thigh and legs : 5/5 Deep tendon reflexes : Normal Knee Jerk. Normal Ankle Jerk . Vertebral body tenderness to palpation over L5 Lumbar Facet Loading Test positive Straight Leg Raise: positive at 30 degrees right side/ left side Gaenslen's Test positive Sacral spine : Severe tenderness over the Sacroiliac joint: right side / left side Range of motion: Flexion of the lumbar spine <60 degrees Range of motion: Extension of the lumbar spine <20 degrees Gaenslen's Test positive right side / left side Eder test: positive right side / left side Thigh Thrust Test positive right side / left side Sacral Thrust Test positive right side / left side Assessment and plan: Chronic LBP secondary to lumbar DDD, spondylosis with facet arthropathy without myelopathy Recommendation of follow up w Dr Kruger. Pt did not exhibit sufficient pain relief w MORGAN nor with facet block of the medial branches. All questions answered. I have spent less than 30 minutes on patient care today. Dr Swanson was available by phone for the evaluation of this patient. The time was used to review the medical records including relevant urine studies and Prescription history (MAPs), review of the available imaging, evaluation and examination of the patient, coordination of care with the medical staff and if applicable referring physicians, as well as creation of the medical record PQRS Narrative: Smoking Status Never smoker Hx Alcohol Use (MH) No Home Medications: Ambulatory Orders Omeprazole [PriLOSEC] 20 mg PO AC-BRKFST 05/29/18 lisinopriL 20 mg PO DAILY 05/29/18 Finasteride [Proscar] 5 mg PO HS 06/12/18 Doxazosin [Cardura] 1 mg PO HS 12/05/20 Ibuprofen [Motrin] 800 mg PO DIRECTED PRN 12/05/20 Celecoxib [CeleBREX] 200 mg PO DAILY PRN 07/22/22 Gabapentin 300 mg PO BID 09/10/22 Controlled Substance Measures - Controlled Substance Measures Is patient prescribed a controlled substance at discharge?: No
== END ==
LOC: PNWHC3 07:52
PROVIDERS: ATTEND Specialist
DX: M51.36 Other intervertebral disc degeneration, lumbar region (principal); M47.816 Spondylosis without myelopathy or radiculopathy, lumbar region; G89.29 Other chronic pain
CPT/HCPCS: 99211

== ENCOUNTER 2023-04-23 11:52 | Inpatient (IN) | payer OTHER ==
[2023-04-23] MEDS ORDERED: MORPHINE SULFATE 4 MG/ML SYRINGE IVP STA (13:06)
[2023-04-23] MEDS ORDERED: SODIUM CHLORIDE 0.9% 1,000 ML IV ONE (13:07)
[2023-04-23 13:30] LABS: Basophils % (A) 0 %; Eosinophils # (A) 0.1 k/uL (0-0.7); Eosinophils % (A) 1 %; HCT 35.4 % (39.0-53.0); HGB 11.5 gm/dL (13.0-17.5); Hypochromasia Slight; Lymphocytes # (A) 2.5 k/uL (1.0-4.8); Lymphocytes % (A) 21 %; MCHC 32.4 g/dL (31.0-37.0); MCV 92.6 fL (80.0-100.0); Mean Platelet Volume 8.6; Monocytes # (A) 0.6 k/uL (0-1.0); Monocytes % (A) 5 %; Neutrophils # (A) 8.5 k/uL (1.3-7.7); Neutrophils % (A) 72 %; Platelet Count 270 k/uL (150-450); RBC 3.82 m/uL (4.30-5.90); WBC 11.9 k/uL (3.8-10.6)
[2023-04-23 13:44] LABS: ALT 24 U/L (4-49); AST 23 U/L (17-59); African American GFR (CKD) >90 (>60 ml/min/1.73 sqM); Albumin 3.5 g/dL (3.5-5.0); Alkaline Phosphatase 70 U/L (38-126); Anion Gap 10 mmol/L; Blood Urea Nitrogen 23 mg/dL (9-20); C Reactive Protein 6.9 mg/dL (<1.0); Calcium 8.5 mg/dL (8.4-10.2); Carbon Dioxide 23 mmol/L (22-30); Chloride 106 mmol/L (98-107); Non-African American GFR(CKD) 90 (>60 ml/min/1.73 sqM); Sodium 139 mmol/L (137-145); Total Bilirubin 0.4 mg/dL (0.2-1.3); Total Protein 6.3 g/dL (6.3-8.2)
--- NOTE | 2023-04-23 13:54 | ED ---
General Adult HPI - General Chief complaint: Skin/Abscess/Foreign Body Stated complaint: swollen L arm Time Seen by Provider: 04/23/23 12:54 Source: patient, RN notes reviewed Mode of arrival: ambulatory - History of Present Illness Initial comments: 63-year-old male with no significant past medical history presents to the emergency department with left elbow swelling. Patient reports that he was working on a replacing a wood floor on 04/17/2023. He reports that he was leaning on his elbow for some time. The next day he woke up and his elbow was swollen. He's been taking Percocet at home without symptomatic relief. He reports that his elbow and left forearm are no swollen, painful and warm to the touch. Eyes known injury or trauma. Denies history of diabetes. - Related Data Home Medications Medication Instructions Recorded Confirmed Omeprazole [PriLOSEC] 20 mg PO BID 05/29/18 04/23/23 lisinopriL 20 mg PO DAILY 05/29/18 04/23/23 Finasteride [Proscar] 5 mg PO HS 06/12/18 04/23/23 Doxazosin [Cardura] 1 mg PO HS 12/05/20 04/23/23 Ibuprofen [Motrin] 800 mg PO TID PRN 12/05/20 04/23/23 Gabapentin [Neurontin] 400 mg PO BID 04/23/23 04/23/23 Loratadine [Claritin] 10 mg PO DAILY 04/23/23 04/23/23 Multivitamins, Thera [Multivitamin 1 tab PO DAILY 04/23/23 04/23/23 (formulary)] Naproxen Sodium/Pseudoephedrin 1 tab PO Q12HR PRN 04/23/23 04/23/23 [Aleve-D Sinus & Cold Caplet] tadalafiL [Cialis] 20 mg PO DAILY PRN 04/23/23 04/23/23 Allergies Allergy/AdvReac Type Severity Reaction Status Date / Time No Known Allergies Allergy Verified 04/23/23 15:12 Review of Systems ROS Statement: Those systems with pertinent positive or pertinent negative responses have been documented in the HPI. ROS Other: All systems not noted in ROS Statement are negative. Past Medical History Past Medical History: GERD/Reflux, Hearing Disorder / Deafness, Hypertension, Musculoskeletal Disorder Additional Past Medical History / Comment(s): Diff w/ high freq sounds., low back pain, bulging discs. History of Any Multi-Drug Resistant Organisms: None Reported Past Surgical History: Orthopedic Surgery Additional Past Surgical History / Comment(s): ACL Replacement RIGHT KNEE (1986 IN [place]); removal of "some bolts" in Rt knee. Lt knee scope ., 2018 knee s urgery november 2020 Past Anesthesia/Blood Transfusion Reactions: No Reported Reaction Additional Past Anesthesia/Blood Transfusion Reaction / Comment(s): . Past Psychological History: No Psychological Hx Reported Smoking Status: Never smoker Past Alcohol Use History: Occasional Past Drug Use History: None Reported - Past Family History Brother(s) Family Medical History: Cancer Additional Family Medical History / Comment(s): Colon cancer, hx exposure to [employer] General Exam - General Exam Comments Initial Comments: General: Alert, in no acute distress Head: atraumatic normocephalic. Eyes PERRL, EOMI intact, mucous membranes moist Respiratory: Lungs clear to auscultation bilaterally Cardiovascular: Heart rate regular rate and rhythm Abdominal: Soft without guarding or rebound Extremities: Normal inspection with full range of motion and normal capillary refill, left elbow with generalized edema and migratory erythema down the left forearm. 2+ radial pulses. Distal neurovascular intact. No crepitus noted. Range of motion limited secondary to pain. Neuroogic: alert and oriented 3, CN II-XII intact, able to ambulate with steady gait Skin: warm dry and intact with normal color Course Vital Signs 04/23/23 04/23/23 12:25 15:21 Temperature 98 F 98.6 F Pulse Rate 82 80 Respiratory 18 16 Rate Blood Pressure 145/93 132/80 O2 Sat by Pulse 97 99 Oximetry - Reevaluation(s) Reevaluation #1: 04/23/23 15:15 At Bedside to Evaluate the Patient. Patient Agreeable with the Plan for Admission. ' 04/23/23 15:[address] Wolff who agrees and accepts the patient for admission Medical Decision Making - Medical Decision Making Was pt. sent in by a medical professional or institution (, PA, TOOL GRINDER SET UP OPERATOR GEAR, urgent care, hospital, or senior care...) When possible be specific @ -[No] Did you speak to anyone other than the patient for history (EMS, parent, family, police, friend...)? What history was obtained from this source @ -[No] Did you review nursing and triage notes (agree or disagree)? Why? @ -[I reviewed and agree with nursing and triage notes] Were old charts reviewed (outside hosp., previous admission, EMS record, old EKG, old radiological studies, urgent care reports/EKG's, senior care records)? Report findings @ -[No old charts were reviewed] Differential Diagnosis (chest pain, altered mental status, abdominal pain women, abdominal pain men, vaginal bleeding, weakness, fever, dyspnea, syncope, headache, dizziness, GI bleed, back pain, seizure, CVA, palpatations, mental health, musculoskeletal)? @ -[not applicable] EKG interpreted by me (3pts min.). @ no X-rays interpreted by me (1pt min.). @ -Yes CT interpreted by me (1pt min.). @ -[None done] U/S interpreted by me (1pt. min.). @ -[None done] What testing was considered but not performed or refused? (CT, X-rays, U/S, labs)? Why? @ -[None] What meds were considered but not given or refused? Why? @ -[None] Did you discuss the management of the patient with other professionals (pr ofessionals i.e. , PA, TOOL GRINDER SET UP OPERATOR GEAR, lab, RT, psych nurse, social media coordinator, manager subway, teacher, correction officer penitentiary, case packer)? Give summary @ Case discussed with Dr. Wolff who agrees and accepts the patient for admission with consult to ID Was smoking cessation discussed for >3mins.? @ -[No] Was critical care preformed (if so, how long)? @ -[No] Were there social determinants of health that impacted care today? How? (Homelessness, low income, unemployed, alcoholism, drug addiction, transpor tation, low edu. Level, literacy, decrease access to med. care, fdc, rehab)? @ -[No] Was there de-escalation of care discussed even if they declined (Discuss DNR or withdrawal of care, Hospice)? DNR status @ -[No] What co-morbidities impacted this encounter? (DM, HTN, Smoking, COPD, CAD, Cancer, CVA, ARF, Chemo, Hep., AIDS, mental health diagnosis, sleep apnea, morbid obesity)? @ -[None] Was patient admitted / discharged? Hospital course, mention meds given and route, prescriptions, significant lab abnormalities, going to OR and other pertinent info. @ -Admission. This is a pleasant 63-year-old male who presents the emergency department left elbow pain. Patient had thorough history and physical exam performed. Left elbow with marked edema, erythema, circumferential erythema to the left forearm. 2+ radial pulses. Distal neurovascular intact. Patient had laboratory studies performed which revealed WBC 11.9, hemoglobin 11.5 sodium 139, potassium 4.0 CRP 6.9. Blood cultures pending. It is my decision to admit the patient for IV antibiotics with consult to infectious disease. Case discussed with Dr. Wolff who agrees and accepts the patient for further observation. Patient started on IV Rocephin and vancomycin. Case discussed with Dr. Richard [facility] who agrees with POC Undiagnosed new problem with uncertain prognosis? @ -[No] Drug Therapy requiring intensive monitoring for toxicity (Heparin, Nitro, Insulin, Cardizem)? @ -[No] Were any procedures done? @ -[No] Diagnosis/symptom? @ -Left elbow pain - Septic Bursitis of left elbow Acute, or Chronic, or Acute on Chronic? @ -Acute Uncomplicated (without systemic symptoms) or Complicated (systemic symptoms)? @ -Uncomplicated Side effects of treatment? @ -[No] Exacerbation, Progression, or Severe Exacerbation? @ -[No] Poses a threat to life or bodily function? How? (Chest pain, USA, CA, pneumonia, PE, COPD, DKA, ARF, appy, cholecystitis, CVA, Diverticulitis, Homicidal, Suicidal, threat to staff... and all critical care pts) @ -Moderate likelihood including worsening infection - Lab Data Result diagrams: 04/23/23 13:22 04/23/23 13:22 Lab Results 04/23/23 04/23/23 Range/Units 13:22 13:22 WBC 11.9 H (3.8-10.6) k/uL RBC 3.82 L (4.30-5.90) m/uL Hgb 11.5 L (13.0-17.5) gm/dL Hct 35.4 L (39.0-53.0) % MCV 92.6 (80.0-100.0) fL MCH 30.0 (25.0-35.0) pg MCHC 32.4 (31.0-37.0) g/dL RDW 14.0 (11.5-15.5) % Plt Count 270 (150-450) k/uL MPV 8.6 Neutrophils % 72 % Lymphocytes % 21 % Monocytes % 5 % Eosinophils % 1 % Basophils % 0 % Neutrophils # 8.5 H (1.3-7.7) k/uL Lymphocytes # 2.5 (1.0-4.8) k/uL Monocytes # 0.6 (0-1.0) k/uL Eosinophils # 0.1 (0-0.7) k/uL Basophils # 0.0 (0-0.2) k/uL Hypochromasia Slight Sodium 139 (137-145) mmol/L Potassium 4.0 (3.5-5.1) mmol/L Chloride 106 (98-107) mmol/L Carbon Dioxide 23 (22-30) mmol/L Anion Gap 10 mmol/L BUN 23 H (9-20) mg/dL Creatinine 0.92 (0.66-1.25) mg/dL Est GFR (CKD-EPI)AfAm >90 (>60 ml/min/1.73 sqM) Est GFR (CKD-EPI)NonAf 90 (>60 ml/min/1.73 sqM) Glucose 98 (74-99) mg/dL Calcium 8.5 (8.4-10.2) mg/dL Total Bilirubin 0.4 (0.2-1.3) mg/dL AST 23 (17-59) U/L ALT 24 (4-49) U/L Alkaline Phosphatase 70 (38-126) U/L C-Reactive Protein 6.9 H (<1.0) mg/dL Total Protein 6.3 (6.3-8.2) g/dL Albumin 3.5 (3.5-5.0) g/dL Disposition Clinical Impression: Septic bursitis of elbow Disposition: ADMITTED IP TO THIS HOSP Condition: Fair Time of Disposition: 15:54
--- NOTE | 2023-04-23 14:04 | XR ---
EXAMINATION TYPE: XR forearm 2 views LT, XR elbow complete 3 views LT DATE OF EXAM: 04/23/2023 COMPARISON: NONE HISTORY: 63-year-old male with swelling and pain, possible infection FINDINGS: Elbow: Circumferential soft tissue swelling at the elbow especially medially and posteriorly. No significant elbow joint effusion identified. No acute fracture, subluxation, or dislocation. No periostitis or o steolysis. Forearm: Soft tissue swelling extends to the distal third forearm. No retained radiopaque foreign body. No per iostitis or osteolysis or acute fracture seen. Wrist articulations are grossly intact. IMPRESSION (elbow and forearm): Circumferential soft tissue swelling at the elbow especially medially and posteriorly suggesting exte nsive cellulitis. No retained foreign body seen. Some soft tissue swelling extends down the forearm a s well. No underlying acute osseous abnormality. Given soft tissue swelling overlying the olecranon, there could be a concurrent olecranon bursitis.
[2023-04-23] MEDS ORDERED: HYDROmorphone 1 MG/ML 1 ML SYRINGE IVP STA (14:43)
[2023-04-23 14:55] LABS: Glucose 98 mg/dL (74-99)
--- NOTE | 2023-04-23 15:09 | US ---
EXAMINATION TYPE: US extremity nonvasculr [facility] DATE OF EXAM: 04/23/2023 COMPARISON: NONE CLINICAL INDICATION: Male, 63 years old with history of left arm swelling; patient fell and hit left elbow, now has large, swollen left elbow that is red and tender, also has fever. TECHNIQUE: Soft tissue scan of left elbow FINDINGS: Heel Slicker notes: Complex collection with increased vascularity at area of pain and swelli ng, probable bursitis IMPRESSION: Targeted scanning at the elbow. The blueprint clerk indicates a markedly complex collection measuring up to 3.4 cm. Given the patient's history of injury and now with infectious signs/symptoms, a large samantha nitin possibly with superinfection is a consideration. Note that the provided images do not provide an y landmarks that would allow orientation to an anatomic location.
[2023-04-23] MEDS ORDERED: VANCOMYCIN IV PER PHARMACY 1 EACH MISC MISCELLANE PRN (15:49)
[2023-04-23] MEDS ORDERED: NALOXONE 0.4 MG/ML 1 ML VIAL IV PRN (15:54)
[2023-04-23] MEDS ORDERED: VANCOMYCIN 2,000 MG in SODIUM CHLORIDE 0.9% 500 ML 500 ML IVPB ONE (16:30)
[2023-04-23] MEDS: HYDROmorphone 1 MG/ML 1 ML SYRINGE IVP PRN ×2 (18:15→21:39)
[2023-04-23 21:36] LABS: Erythrocyte Sedimentation Rate 27 mm/Hr (0-20)
[2023-04-23] MEDS: SODIUM CHLORIDE 0.9% 1,000 ML IV SCH (22:01)
[2023-04-23] MEDS ORDERED: MAGNESIUM SULFATE-D5W PMX 1 GM in DEXTROSE/WATER 1 100ML.BAG IVPB ONE (23:00)
[2023-04-24] MEDS: ACETAMINOPHEN TAB 325 MG TAB PO PRN ×2 (03:55→17:08)
[2023-04-24] MEDS: HYDROmorphone 1 MG/ML 1 ML SYRINGE IVP PRN ×4 (03:56→21:15)
[2023-04-24] MEDS: VANCOMYCIN 1,750 MG in SODIUM CHLORIDE 0.9% 500 ML 500 ML IVPB SCH ×2 (06:16→18:17)
[2023-04-24] MEDS: SODIUM CHLORIDE 0.9% 1,000 ML IV SCH ×2 (06:40→21:19)
--- NOTE | 2023-04-24 08:55 | P.CONS ---
History of Present Illness - Reason for Consult Consult date: 04/23/23 - History of Present Illness Patient is a 63-year-old male with a past medical history significant for hypertension hearing disorder reflux presenting to the ER this afternoon for evaluation of left elbow swelling patient mention he was working on replacing a wood floor on , 04/17/2023 and he was leaning on his left elbow for some time the next day the patient woke up and his left elbow was swollen but has progressed to get worse patient has some Percocet at home without any improvement subsequently patient noticed the swelling and redness has been spreading from the elbow to the left forearm patient was describing the pain to be sharp almost 10 out of 10 in severity with radiation to the forearm area did not have any open wound or any drainage did have some chills at home with the send the patient presented to hospital on arrival to the ER the patient was afebrile and no fever has been recorded subsequently patient was not tachycardic or hypertensive and no hypoxemia he did have margin of 11.9 with a left shift creatinine 0.92 liver enzymes are normal CRP 6.9 patient did have the elbow x-r ay circumflexion soft tissue swelling at the elbow suggesting extensive cellulitis no underlying bony abnormality ultrasound shows complex collection measuring up to 3.4 cm patient was started on vancomycin infectious disease was consulted for further management of antibiotic therapy Past Medical History Past Medical History: GERD/Reflux, Hearing Disorder / Deafness, Hypertension, Musculoskeletal Disorder Additional Past Medical History / Comment(s): Diff w/ high freq sounds., low back pain, bulging discs. History of Any Multi-Drug Resistant Organisms: None Reported Past Surgical History: Orthopedic Surgery Additional Past Surgical History / Comment(s): ACL Replacement RIGHT KNEE (1986 IN [place]); removal of "some bolts" in Rt knee. Lt knee scope ., 2018 knee surgery november 2020 Past Anesthesia/Blood Transfusion Reactions: No Reported Reaction Additional Past Anesthesia/Blood Transfusion Reaction / Comm: . Past Psychological History: No Psychological Hx Reported Smoking Status: Never smoker Past Alcohol Use History: Occasional Past Drug Use History: None Reported - Past Family History Brother(s) Family Medical History: Cancer Additional Family Medical History / Comment(s): Colon cancer, hx exposure to [employer] Medications and Allergies Home Medications Medication Instructions Recorded Confirmed Type Omeprazole [PriLOSEC] 20 mg PO BID 05/29/18 04/23/23 History lisinopriL 20 mg PO DAILY 05/29/18 04/23/23 History Finasteride [Proscar] 5 mg PO HS 06/12/18 04/23/23 History Doxazosin [Cardura] 1 mg PO HS 12/05/20 04/23/23 History Ibuprofen [Motrin] 800 mg PO TID PRN 12/05/20 04/23/23 History Gabapentin [Neurontin] 400 mg PO BID 04/23/23 04/23/23 History Loratadine [Claritin] 10 mg PO DAILY 04/23/23 04/23/23 History Multivitamins, Thera [Multivitamin 1 tab PO DAILY 04/23/23 04/23/23 History (formulary)] Naproxen Sodium/Pseudoephedrin 1 tab PO Q12HR PRN 04/23/23 04/23/23 History [Aleve-D Sinus & Cold Caplet] tadalafiL [Cialis] 20 mg PO DAILY PRN 04/23/23 04/23/23 History Allergies Allergy/AdvReac Type Severity Reaction Status Date / Time No Known Allergies Allergy Verified 04/23/23 15:12 Physical Exam Vitals: Vital Signs Temp Pulse Resp BP Pulse Ox 04/23/23 15:21 98.6 F 80 16 132/80 99 04/23/23 12:25 98 F 82 18 145/93 97 Intake and Output 04/23/23 04/23/23 04/23/23 06:59 14:59 22:59 Other: Weight 99.79 kg Results CBC & Chem 7: 04/23/23 13:22 04/23/23 13:22 Labs: Abnormal Lab Results - Last 24 Hours (Table) 04/23/23 04/23/23 Range/Units 13:22 13:22 WBC 11.9 H (3.8-10.6) k/uL RBC 3.82 L (4.30-5.90) m/uL Hgb 11.5 L (13.0-17.5) gm/dL Hct 35.4 L (39.0-53.0) % Neutrophils # 8.5 H (1.3-7.7) k/uL BUN 23 H (9-20) mg/dL C-Reactive Protein 6.9 H (<1.0) mg/dL Assessment and Plan Plan: 1patient was in the hospital with a left elbow pain swelling and redness likely related to septic olecranon bursitis as the patient noticed to having a streaking redness extending to the left forearm and there was evidence of fluid collection on the ultrasound likely from gram-positive skin sabino gram-negative infection less likely but not entirely excluded 2-patient is broadly covered with vancomycin and Unasyn to continue 3-await Ortho evaluation for possible aspirate versus left olecranon bursectomy and deep culture We will follow on clinical condition and cultures to further adjust medication if needed Thank you for this consultation we will follow the patient along with you Dictation was produced using [employer] dictation software. please excuse any grammatical, word or spelling errors. Time with Patient: Greater than 30
[2023-04-24] MEDS ORDERED: GABAPENTIN 400 MG CAP PO SCH (09:00)
[2023-04-24] MEDS ORDERED: NON FORMULARY DRUG PO SCH (09:00)
[2023-04-24] MEDS: lisinopriL 20 MG TAB PO SCH (09:28)
[2023-04-24] MEDS: AMPICILLIN-SULBACTAM 3 GM in SODIUM CHLORIDE 0.9% 100 ML IVPB SCH ×3 (09:32→21:11)
[2023-04-24] MEDS: [UNRECOGNIZED DRUG - OTHER] PO SCH ×2 (10:50→22:24)
[2023-04-24] MEDS: OMEPRAZOLE 20 MG PO SCH ×2 (10:50→22:24)
[2023-04-24] MEDS ORDERED: IBUPROFEN 800 MG TAB PO PRN (11:08)
[2023-04-24 11:15] LABS: Basophils # (A) 0.04 X 10*3/uL (0.00-0.10); Basophils % (A) 0.3 %; Eosinophils # (A) 0.16 X 10*3/uL (0.04-0.35); Eosinophils % (A) 1.4 %; HCT 34.5 % (39.6-50.0); HGB 10.7 d/dL (13.0-17.0); Lymphocytes # (A) 2.18 X 10*3/uL (0.90-5.00); Lymphocytes % (A) 18.9 %; MCH 28.5 pg (27.0-32.0); Monocytes # (A) 1.05 X 10*3/uL (0.20-1.00); Monocytes % (A) 9.1 %; NRBC Per 100 WBC 0 X 10*3/uL (0.00-0.01); Neutrophils % (A) 69.3 %; Platelet Count 284 X 10*3/uL (140-440); RBC 3.75 X 10*6/uL (4.40-5.60); WBC 11.55 X 10*3/uL (4.50-10.00)
[2023-04-24] MEDS ORDERED: lisinopriL 20 MG TAB PO SCH (11:15)
[2023-04-24] MEDS: GABAPENTIN 400 MG CAP PO SCH ×2 (11:16→21:12)
[2023-04-24 11:31] LABS: Blood Urea Nitrogen 15.9 mg/dL (9.0-27.0); Calcium 8.3 mg/dL (8.7-10.3); Carbon Dioxide 25.5 mmol/L (21.6-31.8); Chloride 106 mmol/L (96-109); Glucose 143 mg/dL (70-110); Potassium 4.4 mmol/L (3.5-5.5); Sodium 141 mmol/L (135-145)
--- NOTE | 2023-04-24 13:02 | P.CNOR ---
History of Present Illness - [facility] Consult date: 04/24/23 Consult reason: joint pain (Left elbow pain) History of present illness: Patient is a 63-year-old male who presented to [facility] on 04/23/2023 with regards to pain and swelling and redness involving his left elbow. Apparently the patient was doing some aby work last week at a family member's house when he feels he may have bumped the elbow on something. Patient awoke the next day and noticed worsening pain and swelling. She returned home to [place], the pain and swelling had continued along with the redness, he was seen at an urgent care on 04/23/2023, they recommended he come to the hospital for further evaluation. Patient was then evaluated at [facility], he then was admitted under internal medicine with infectious disease and our orthopedic team placed a consult. Patient was started on IV antibiotics. Patient's white blood cell count, CRP and sed rate were all e levated. Patient was evaluated today at bedside, he is resting comfortably. He states that the generalized swelling and redness throughout the upper and lower arm seems to improved since being in the hospital overnight and being started on IV antibiotics. He continues to have significant discomfort over the olecranon area left elbow. Patient has no other orthopedic complaints to the left upper extremity. He is orthopedic surgery to the left upper extremity. Denies any fevers or chills of this times. He denies any headaches, lightheadedness, chest pain or shortness of breath. Patient has been evaluated by Dr. Kruger in our practice for low back issues, he is also has seen Dr. Pham with regards to his right knee. Review of Systems Constitutional: Reports as per HPI Past Medical History Past Medical History: GERD/Reflux, Hearing Disorder / Deafness, Hypertension, Musculoskeletal Disorder Additional Past Medical History / Comment(s): Diff w/ high freq sounds., low back pain, bulging discs. History of Any Multi-Drug Resistant Organisms: None Reported Past Surgical History: Orthopedic Surgery Additional Past Surgical History / Comment(s): ACL Replacement RIGHT KNEE (1986 IN [place]); removal of "some bolts" in Rt knee. Lt knee scope ., 2018 knee surgery november 2020 Past Anesthesia/Blood Transfusion Reactions: No Reported Reaction Additional Past Anesthesia/Blood Transfusion Reaction / Comm: . Past Psychological History: No Psychological Hx Reported Smoking Status: Never smoker Past Alcohol Use History: Occasional Past Drug Use History: None Reported - Past Family History Brother(s) Family Medical History: Cancer Additional Family Medical History / Comment(s): Colon cancer, hx exposure to [employer] Medications and Allergies Home Medications Medication Instructions Recorded Confirmed Type Omeprazole [PriLOSEC] 20 mg PO BID 05/29/18 04/23/23 History lisinopriL 20 mg PO DAILY 05/29/18 04/23/23 History Finasteride [Proscar] 5 mg PO HS 06/12/18 04/23/23 History Doxazosin [Cardura] 1 mg PO HS 12/05/20 04/23/23 History Ibuprofen [Motrin] 800 mg PO TID PRN 12/05/20 04/23/23 History Gabapentin [Neurontin] 400 mg PO BID 04/23/23 04/23/23 History Loratadine [Claritin] 10 mg PO DAILY 04/23/23 04/23/23 History Multivitamins, Thera [Multivitamin 1 tab PO DAILY 04/23/23 04/23/23 History (formulary)] Naproxen Sodium/Pseudoephedrin 1 tab PO Q12HR PRN 04/23/23 04/23/23 History [Aleve-D Sinus & Cold Caplet] tadalafiL [Cialis] 20 mg PO DAILY PRN 04/23/23 04/23/23 History Allergies Allergy/AdvReac Type Severity Reaction Status Date / Time No Known Allergies Allergy Verified 04/23/23 15:12 Physical Examination Left upper extremity: Obvious erythema and soft tissue swelling present over the left olecranon bursa. There is tenderness with palpation to that area. There are no open lesions in the skin. There is some fluctuance appreciated on that area. There is generalized swelling and mild erythema noted proximal distal stability elbow, patient notes this has improved since yesterday Passive range of motion of the elbow and active range of motion with extension and flexion reproduces minimal pain, full extension does reproduce discomfort over the olecranon bursa. He is able to pronate and supinate the forearm with minimal difficulty. Extension and flexion at the wrist are intact, he is able to move all the fingers no difficulty, he can make a fist. No obvious strength deficits were appreciated when examining the shoulder, elbow, wrist and hand Sensory exam to light touch is intact throughout the extremity Ulnar pulses are 2+ Results - Labs Labs: Abnormal Lab Results - Last 24 Hours (Table) 04/23/23 04/23/23 04/24/23 Range/Units 13:22 13:22 06:31 WBC 11.9 H 11.55 H (3.8-10.6) k/uL RBC 3.82 L 3.75 L (4.30-5.90) m/uL Hgb 11.5 L 10.7 L (13.0-17.5) gm/dL Hct 35.4 L 34.5 L (39.0-53.0) % MCHC 31.0 L (32.0-37.0) d/dL RDW 15.0 H (11.5-14.5) % Neutrophils # 8.5 H 8.00 H (1.3-7.7) k/uL Monocytes # 1.05 H (0.20-1.00) X 10*3/uL ESR 27 H (0-20) mm/Hr BUN 23 H (9-20) mg/dL Glucose (70-110) mg/dL Calcium (8.7-10.3) mg/dL C-Reactive Protein 6.9 H (<1.0) mg/dL 04/24/23 Range/Units 06:31 WBC (3.8-10.6) k/uL RBC (4.30-5.90) m/uL Hgb (13.0-17.5) gm/dL Hct (39.0-53.0) % MCHC (32.0-37.0) d/dL RDW (11.5-14.5) % Neutrophils # (1.3-7.7) k/uL Monocytes # (0.20-1.00) X 10*3/uL ESR (0-20) mm/Hr BUN (9-20) mg/dL Glucose 143 H (70-110) mg/dL Calcium 8.3 L (8.7-10.3) mg/dL C-Reactive Protein (<1.0) mg/dL H & H 04/23/23 04/24/23 Range/Units 13:22 06:31 Hgb 11.5 L 10.7 L (13.0-17.5) gm/dL Hct 35.4 L 34.5 L (39.0-53.0) % Result Diagrams: 04/24/23 06:31 04/24/23 06:31 - Diagnostic results Elbow x-ray: report reviewed, image reviewed (Forearm and elbow x-rays of the left side were reviewed from 04/23/2023 along with reports. Images demonstrate no acute fractures or dislocations. There is no obvious foreign bodies. Notable soft tissue swelling in the olecranon bursal region.) Assessment and Plan Assessment: Left elbow pain Left elbow septic olecranon bursitis Other medical comorbidities Plan: I was able to discuss the case, this including both physical exam findings and imaging studies my attending Dr. Kruger. We are recommending surgical intervention at this time, more specifically incision and drainage with irrigat ion and debridement of the left olecranon bursa. Cultures will be taken at surgery. Surgery scheduled for 04/25/2023 Risk and benefits of procedure were discussed with the patient, this to include but not exclude worsening infection, blood loss, neurovascular injury, development of blood clots, and had resolution of symptoms, need for further surgery, pain and stiffness. Patient is a good understanding would like to proceed. Consent was obtained prior to procedure Nothing by mouth after midnight Pain control, oral versus IV pending pain level Basic range of motion exercises of the left upper extremity are okay at this time Other medical specialty recommendations appreciated Discharge planning: I anticipate patient will remain in the hospital over the next 3-5 days for culture and sensitivity results, pending those results if they require IV antibiotic treatment. Further recommendations to follow Time with Patient: Less than 30
[2023-04-24] MEDS: LORATADINE 10 MG TAB PO SCH (13:13)
[2023-04-24] MEDS: PANTOPRAZOLE 40 MG TABLET PO SCH (13:13)
[2023-04-24 13:28] VITALS: BMI 29.8
--- NOTE | 2023-04-24 15:15 | P.HPIM ---
History of Present Illness H&P Date: 04/24/23 This is 63-year-old gentleman with past medical history significant for hypertension, obesity, chronic back pain, gastroesophageal reflux disease, hearing disorder and multiple other medical issues presented to the ER with left elbow pain. Patient had been out of state and installing a snap together floor, leaning on his left elbow for significant amounts of time. Denies prior or post trauma .Developed swelling and redness of the left elbow accompanied by fevers and chills. Denies chest pain, palpitations or shortness of breath. Denies nausea or vomiting or diarrhea. Denies lightheadedness dizziness or focal deficits. Initially was not able to extend the affected extremity. Afebrile, WB C, ESR and CRP elevated . Renal function stable .Started on IV fluid hydration and IV antibiotics. Review of Systems ROS Statement: Those systems with pertinent positive or pertinent negative responses have been documented in the HPI. ROS Other: All systems not noted in ROS Statement are negative. Past Medical History Past Medical History: GERD/Reflux, Hearing Disorder / Deafness, Hypertension, Musculoskeletal Disorder Additional Past Medical History / Comment(s): Diff w/ high freq sounds., low back pain, bulging discs. History of Any Multi-Drug Resistant Organisms: None Reported Past Surgical History: Orthopedic Surgery Additional Past Surgical History / Comment(s): ACL Replacement RIGHT KNEE (1986 IN [place]); removal of "some bolts" in Rt knee. Lt knee scope ., 2018 knee surge ry november 2020 Past Anesthesia/Blood Transfusion Reactions: No Reported Reaction Additional Past Anesthesia/Blood Transfusion Reaction / Comment(s): . Past Psychological History: No Psychological Hx Reported Smoking Status: Never smoker Past Alcohol Use History: Occasional Past Drug Use History: None Reported - Past Family History Brother(s) Family Medical History: Cancer Additional Family Medical History / Comment(s): Colon cancer, hx exposure to [employer] Medications and Allergies Home Medications Medication Instructions Recorded Confirmed Type Omeprazole [PriLOSEC] 20 mg PO BID 05/29/18 04/23/23 History lisinopriL 20 mg PO DAILY 05/29/18 04/23/23 History Finasteride [Proscar] 5 mg PO HS 06/12/18 04/23/23 History Doxazosin [Cardura] 1 mg PO HS 12/05/20 04/23/23 History Ibuprofen [Motrin] 800 mg PO TID PRN 12/05/20 04/23/23 History Gabapentin [Neurontin] 400 mg PO BID 04/23/23 04/23/23 History Loratadine [Claritin] 10 mg PO DAILY 04/23/23 04/23/23 History Multivitamins, Thera [Multivitamin 1 tab PO DAILY 04/23/23 04/23/23 History (formulary)] Naproxen Sodium/Pseudoephedrin 1 tab PO Q12HR PRN 04/23/23 04/23/23 History [Aleve-D Sinus & Cold Caplet] tadalafiL [Cialis] 20 mg PO DAILY PRN 04/23/23 04/23/23 History Allergies Allergy/AdvReac Type Severity Reaction Status Date / Time No Known Allergies Allergy Verified 04/23/23 15:12 Physical Exam Vitals: Vital Signs Temp Pulse Pulse Resp BP BP Pulse Ox 04/24/23 11:30 96 F L 80 15 147/81 96 04/24/23 07:35 98.2 F 75 16 149/79 97 04/24/23 01:56 98.6 F 85 18 163/74 97 04/23/23 21:06 98.5 F 98 18 153/75 94 L 04/23/23 18:39 98.4 F 89 16 155/88 100 04/23/23 15:21 98.6 F 80 16 132/80 99 Intake and Output 04/23/23 04/24/23 04/24/23 22:59 06:59 14:59 Output Total 200 Balance -200 Output: Urine 200 Other: Voiding Method Toilet Urinal Weight 99.79 kg 99.79 kg PHYSICAL EXAM: VITAL SIGNS: [As above] GENERAL: Eating up in bed, no acute distress HEENT: Normocephalic, Conjunctivae normal. eyes normal. NECK: Supple, No JVD. No thyroid enlargement. No LNs CARDIOVASCULAR: S1, S2 regular. No murmur RESPIRATION: Unlabored, equal air entry, CTA. ABDOMEN: Soft, nondistended, nontender . No guarding. +Bowel sounds. LEGS: No edema. no swelling PSYCHIATRY: Alert and oriented X3, mood and affect normal. NERVOUS SYSTEM: Cranial N 2-12 grossly normal. No focal deficits. Strength and sensation grossly intact. Skin: Left elbow, swollen, and tender with induration around the olecranion bursa, no drainage, able to extend, positive wrist and digits movement , + pulse.Warm and dry, no rash. Results CBC & Chem 7: 04/24/23 06:31 04/24/23 06:31 Labs: Abnormal Lab Results - Last 24 Hours (Table) 04/23/23 04/24/23 04/24/23 Range/Units 13:22 06:31 06:31 WBC 11.55 H (4.50-10.00) X 10*3/uL RBC 3.75 L (4.40-5.60) X 10*6/uL Hgb 10.7 L (13.0-17.0) d/dL Hct 34.5 L (39.6-50.0) % MCHC 31.0 L (32.0-37.0) d/dL RDW 15.0 H (11.5-14.5) % Neutrophils # 8.00 H (1.80-7.70) X 10*3/uL Monocytes # 1.05 H (0.20-1.00) X 10*3/uL ESR 27 H (0-20) mm/Hr Glucose 143 H (70-110) mg/dL Calcium 8.3 L (8.7-10.3) mg/dL Thrombosis Risk Factor Assmnt - Choose All That Apply Any of the Below Risk Factors Present?: No Other Risk Factors: Yes Each Risk Factor Represents 2 Points: Age 61-74 years Other congenital or acquired thrombophilia - If yes, enter type in comment: No Thrombosis Risk Factor Assessment Total Risk Factor Score: 2 Thrombosis Risk Factor Assessment Level: Low Risk Assessment and Plan Assessment: Septic bursitis of left elbow Obesity, BMI 29.8 Gastroesophageal reflux disease Hypertension Plan: Continue on current medication regime,monitoring and symptomatic treatment. Maintain IV antibiotics as per ID. Gentle IV fluid hydration. Orthopedic Surgery consult in place with recommendations pending/potential I&D with deepculture. The impression and plan of care has been dictated as directed. : I performed a history and examination of this patient, discussed the same with the dictator. I agree with the dictator's note ,documented as a scribe. Any additional findings or plans will be noted.
--- NOTE | 2023-04-24 16:40 | P.PN ---
Subjective Progress Note Date: 04/24/23 Principal diagnosis: Left olecranon bursitis Patient is a 63-year-old male with a past medical history significant for hypertension hearing disorder reflux presenting to the ER this afternoon for evaluation of left elbow swelling and has been diagnosed with a left olecranon bursitis. On today's evaluation that is 04/24/2023, the patient remains to be afebrile the patient is breathing comfortably on room air, the patient denies chest pain and no significant cough or sputum production, patient denies nausea/vomiting and no diarrhea, patient pain to the left elbow has slightly decreased in intensity. Patient white count of 11.55, creatinine 1.0 Objective - Vital Signs Vital signs: Vital Signs Temp 96 F L 04/24/23 11:30 Pulse 80 04/24/23 11:30 Resp 15 04/24/23 11:30 BP 147/81 04/24/23 11:30 Pulse Ox 96 04/24/23 11:30 FiO2 Intake & Output 04/23/23 04/24/23 04/24/23 18:59 06:59 18:59 Output Total 200 Balance -200 Weight 99.79 kg 99.79 kg 99.79 kg Output: Urine 200 Other: Voiding Method Toilet Urinal - Exam GENERAL DESCRIPTION: A middle-aged male lying in bed in no distress RESPIRATORY SYSTEM: Unlabored breathing , decreased breath sounds at bases HEART: S1 S2 regular rate and rhythm , ABDOMEN: Soft , no tenderness EXTREMITIES: Left elbow swelling and redness has slightly decreased - Labs CBC & Chem 7: 04/24/23 06:31 04/24/23 06:31 Labs: Abnormal Lab Results - Last 24 Hours (Table) 04/23/23 04/24/23 04/24/23 Range/Units 13:22 06:31 06:31 WBC 11.55 H (4.50-10.00) X 10*3/uL RBC 3.75 L (4.40-5.60) X 10*6/uL Hgb 10.7 L (13.0-17.0) d/dL Hct 34.5 L (39.6-50.0) % MCHC 31.0 L (32.0-37.0) d/dL RDW 15.0 H (11.5-14.5) % Neutrophils # 8.00 H (1.80-7.70) X 10*3/uL Monocytes # 1.05 H (0.20-1.00) X 10*3/uL ESR 27 H (0-20) mm/Hr Glucose 143 H (70-110) mg/dL Calcium 8.3 L (8.7-10.3) mg/dL Assessment and Plan (1) Septic bursitis of elbow Current Visit: Yes Status: Acute Code(s): M71.129 - OTHER INFECTIVE BURSITIS , UNSPECIFIED ELBOW SNOMED Code(s): 958378648 Plan: 1patient was in the hospital with a left elbow pain swelling and redness likely related to septic olecranon bursitis as the patient noticed to having a streaking redness extending to the left forearm and there was evidence of fluid collection on the ultrasound likely from gram-positive skin sabino gram-negative infection less likely but not entirely excluded 2-patient has been evaluated by Ortho and planning for left olecranon bursectomy and deep culture tomorrow morning 3we will continue the patient on vancomycin and Unasyn while waiting for the cultures to be finalize Dictation was produced using [employer] dictation software. please excuse any grammatical, word or spelling errors. Time with Patient: Less than 30
[2023-04-24] MEDS ORDERED: FINASTERIDE 5 MG TAB PO SCH (21:00)
[2023-04-24] MEDS ORDERED: DOXAZOSIN 1 MG TAB PO SCH (21:00)
[2023-04-24] MEDS: DOXAZOSIN 1 MG TAB PO SCH (21:12)
[2023-04-24] MEDS: FINASTERIDE 5 MG TAB PO SCH (21:12)
[2023-04-24] MEDS: IBUPROFEN 800 MG TAB PO PRN (21:13)
[2023-04-25] MEDS: AMPICILLIN-SULBACTAM 3 GM in SODIUM CHLORIDE 0.9% 100 ML IVPB SCH ×4 (03:05→20:47)
[2023-04-25] MEDS: HYDROmorphone 1 MG/ML 1 ML SYRINGE IVP PRN ×3 (03:05→12:19)
[2023-04-25] MEDS: VANCOMYCIN 1,750 MG in SODIUM CHLORIDE 0.9% 500 ML 500 ML IVPB SCH ×2 (06:24→20:47)
[2023-04-25] MEDS: ACETAMINOPHEN TAB 325 MG TAB PO PRN ×2 (08:00→14:58)
[2023-04-25] MEDS: lisinopriL 20 MG TAB PO SCH (08:01)
[2023-04-25] MEDS: LORATADINE 10 MG TAB PO SCH (08:01)
[2023-04-25] MEDS: MULTIVITAMINS, THERA 1 EACH TAB PO SCH (08:01)
[2023-04-25] MEDS: PANTOPRAZOLE 40 MG TABLET PO SCH (08:01)
[2023-04-25] MEDS: GABAPENTIN 400 MG CAP PO SCH ×2 (08:01→20:46)
[2023-04-25] MEDS: OMEPRAZOLE 20 MG PO SCH ×2 (08:02→20:48)
[2023-04-25] MEDS: [UNRECOGNIZED DRUG - OTHER] PO SCH ×2 (08:02→20:48)
--- NOTE | 2023-04-25 10:22 | P.PN ---
Subjective Progress Note Date: 04/25/23 Principal diagnosis: Septic bursitis of the left elbow Patient seen and examined this morning. Patient is resting comfortably in bed. He reports that he has been nothing by mouth since midnight. Patient is looking forward to having procedure completed to relieve pressure in his left elbow. Patient does report that his pain is managed on current regimen. Patient denies any concerns at this time. Objective - Vital Signs Vital signs: Vital Signs Temp 97.8 F 04/25/23 02:49 Pulse 78 04/25/23 02:49 Resp 18 04/25/23 02:49 BP 133/74 04/25/23 02:49 Pulse Ox 97 04/25/23 02:49 FiO2 Intake & Output 04/24/23 04/25/23 04/25/23 18:59 06:59 18:59 Intake Total 1000 0 Balance 1000 0 Weight 99.79 kg Intake: Intake, IV Titration 1000 Amount Ampicillin-Sulbactam 3 gm 100 In Sodium Chloride 0.9% 100 ml @ 200 mls/hr IVPB Q6H [facility] Rx#:[id number] Sodium Chloride 0.9% 1, 900 000 ml @ 75 mls/hr IV . [id number] [facility] Rx#:[id number] Oral 0 Other: Voiding Method Toilet Urinal # Voids 2 - Exam Left upper extremity: Erythema and soft tissue swelling presents over the left olecranon bursa. There is tenderness with palpation to that area. No obvious strength deficits were appreciated when examining the shoulder, elb ow, wrist and hand Sensory exam to light touch is intact throughout the extremity Ulnar pulses are 2+ - Labs CBC & Chem 7: 04/24/23 06:31 04/24/23 06:31 Labs: Abnormal Lab Results - Last 24 Hours (Table) 04/24/23 04/24/23 Range/Units 06:31 06:31 WBC 11.55 H (4.50-10.00) X 10*3/uL RBC 3.75 L (4.40-5.60) X 10*6/uL Hgb 10.7 L (13.0-17.0) d/dL Hct 34.5 L (39.6-50.0) % MCHC 31.0 L (32.0-37.0) d/dL RDW 15.0 H (11.5-14.5) % Neutrophils # 8.00 H (1.80-7.70) X 10*3/uL Monocytes # 1.05 H (0.20-1.00) X 10*3/uL Glucose 143 H (70-110) mg/dL Calcium 8.3 L (8.7-10.3) mg/dL Microbiology - Last 24 Hours (Table) 04/23/23 13:22 Blood Culture - Preliminary Blood 04/23/23 13:22 Blood Culture - Preliminary Blood Assessment and Plan Assessment: Left elbow pain Left elbow septic olecranon bursitis Other medical comorbidities Plan: 1. Appreciate medical management 2. Surgical intervention scheduled for later today 04/25/23 incision and drainage with irrigation and debridement of the left olecranon bursa, cultures will be obtained. 3. Continue nothing by mouth 4. Pain management - continue with IV and oral medication at this time 4. GI prophylaxis - per medicine 5. DVT prophylaxis - mechanical 6. Appreciate consult
[2023-04-25] MEDS: SODIUM CHLORIDE 0.9% 1,000 ML IV SCH ×2 (13:13→13:26)
[2023-04-25] MEDS ORDERED: IV FLUID CONTINUATION 1,000 ML IV ONE (16:20)
[2023-04-25] MEDS ORDERED: ONDANSETRON 4 MG/2 ML VIAL ONE (16:20)
[2023-04-25] MEDS ORDERED: fentaNYL (PF) 50 MCG/ML 2 ML AMP IVP ONE ×3 (16:22→19:37)
[2023-04-25] MEDS ORDERED: ONDANSETRON 4 MG/2 ML VIAL IVP ONE (16:22)
--- NOTE | 2023-04-25 16:45 | P.PN ---
Subjective Progress Note Date: 04/25/23 H&P Date: 04/24/23 This is 63-year-old gentleman with past medical history significant for hypertension, obesity, chronic back pain, gastroesophageal reflux disease, hearing disorder and multiple other medical issues presented to the ER with left elbow pain. Patient had been out of state and installing a snap together floor, leaning on his left elbow for significant amounts of time. Denies prior or post trauma .Developed swelling and redness of the left elbow accompanied by fevers and chills. Denies chest pain, palpitations or shortness of breath. Denies nausea or vomiting or diarrhea. Denies lightheadedness dizziness or focal deficits. Initially was not able to extend the affected extremity. Afebrile, WBC, ESR and CRP elevated . Renal function stable .Started on IV fluid hydration and IV antibiotics. 04/25/2023 maintained on IV antibiotics as per ID. Afebrile. Complains of left elbow pressure pain, recently medicated. Denies chest pain, palpitations or sh ortness of breath. Maintaining O2 sats in the high 90s on room air. Objective - Vital Signs Vital signs: Vital Signs Temp 97.8 F 04/25/23 16:10 Pulse 72 04/25/23 16:10 Resp 16 04/25/23 16:10 BP 178/86 04/25/23 16:10 Pulse Ox 98 04/25/23 16:10 FiO2 Intake & Output 04/24/23 04/25/23 04/25/23 18:59 06:59 18:59 Intake Total 1000 0 Balance 1000 0 Weight 99.79 kg Intake: Intake, IV Titration 1000 Amount Ampicillin-Sulbactam 3 gm 100 In Sodium Chloride 0.9% 100 ml @ 200 mls/hr IVPB Q6H [facility] Rx#:[id number] Sodium Chloride 0.9% 1, 900 000 ml @ 75 mls/hr IV . [id number] [facility] Rx#:[id number] Oral 0 Other: Voiding Method Toilet Urinal # Voids 2 2 - Exam PHYSICAL EXAM: VITAL SIGNS: [As above] GENERAL: Alert and oriented 3, Sitting up in bed, no acute distress HEENT: Normocephalic, Conjunctivae normal. eyes normal. NECK: Supple, No JVD. CARDIOVASCULAR: S1, S2 regular. No murmur RESPIRATION: Unlabored, equal air entry, CTA. ABDOMEN: Soft, nondistended, nontender . No guarding. +Bowel sounds. LEGS: No edema. no swelling NERVOUS SYSTEM: Cranial N 2-12 grossly normal. No focal deficits. Strength and sensation grossly intact. Skin: Left elbow, swollen, reddened and tender with induration around the olecranion bursa, no drainage, able to extend, positive wrist and digits movement , + pulse.Warm and dry, no rash. - Labs CBC & Chem 7: 04/24/23 06:31 04/24/23 06:31 Labs: Microbiology - Last 24 Hours (Table) 04/23/23 13:22 Blood Culture - Preliminary Blood 04/23/23 13:22 Blood Culture - Preliminary Blood Assessment and Plan Assessment: Septic bursitis of left elbow Obesity, BMI 29.8 Gastroesophageal reflux disease Hypertension Plan: Continue on current medication regime,monitoring and symptomatic treatmen t. IV antibiotics of vancomycin and Unasyn as per ID. close monitoring of renal function, left wrist with repeat labs ordered for a.m. Gentle IV fluid hydration. NPO, Scheduled for I&D with Orthopedic Surgery today. Pain management. The impression and plan of care has been dictated as directed. : I performed a history and examination of this patient, discussed the same with the dictator. I agree with the dictator's note ,documented as a scribe. Any additional findings or plans will be noted.
[2023-04-25] MEDS ORDERED: fentaNYL (PF) 50 MCG/ML 2 ML AMP ONE (18:11)
[2023-04-25] MEDS ORDERED: LIDOCAINE 1% INJ 10MG/ML (20 ML MDV) ONE (18:11)
[2023-04-25] MEDS ORDERED: LIDOCAINE 1%-EPI 1:100,000 20 ML VIAL ONE (18:11)
[2023-04-25] MEDS ORDERED: HYDROmorphone (PF) 1 MG/ML ONE (18:11)
[2023-04-25] MEDS ORDERED: PROPOFOL 10 MG/ML 20 ML VIAL IV ONE (18:11)
[2023-04-25] MEDS ORDERED: ROPIVACAINE 5 MG/ML 30 ML VIAL ONE (18:11)
[2023-04-25] MEDS ORDERED: MIDAZOLAM 2 MG/2 ML VIAL ONE (18:11)
[2023-04-25] MEDS ORDERED: SUCCINYLCHOLINE CHLORIDE 200 MG/10 ML VIAL IV ONE (18:11)
[2023-04-25] MEDS ORDERED: ceFAZolin 3,000 MG in SODIUM CHLORIDE 0.9% IRRIGATIO 3,000 ML IRRIGATION ONE ×4 (18:15)
--- NOTE | 2023-04-25 18:24 | P.PN ---
Progress Note - Text Progress Note Date: 04/25/23 Orthopedic Surgery Risk Review patient is a 63-year-old male presenting for evaluation of sudden onset left elbow pain, swelling redness and pain with range of motion after putting in a bathroom floor for his [id number]. It was my pleasure to have seen and examined Alexey. In our visit today we have had a chance to go over subjective complaints, physical examination findings and treatments including the natural course history without intervention and various interventional options. His imaging demonstrates soft tissue swelling over the left olecranon no fractures. On physical exam, Eddieemonstrates pain with motion of left elbow with left elbow septic bursitis redness swelling and tenderness to palpation, which is NV intact at this time. I have explained to the patient that this fracture needs stabilization. Based on the patients imaging, physical exam, and the rapid progression and disabling nature of her symptoms, at this time I recommend surgery in the form or a: incision and drainage with irrigation and debridement left elbow olecranon bursa I discussed the risk and benefits of this procedure at length with the patient. Questions were invited and answered, and the patient wishes to proceed as outlined below. Currently, I am recommendin. incision and drainage with irrigation and debridement left elbow olecranon bursa 2. Review of surgical risks and benefits as well as an educational packet on the proposed surgical procedure. Risks: All surgical procedures come with inherent risks, including those related to positioning, anesthesia, intraoperative findings, and postoperative complications. It is important to understand that surgery does not come with any guarantee of a successful outcome as complications and adverse events are always possible. The patient was given a handout discussing the surgical procedure and risks associated with the intervention, both of which were discussed with the patient. These risks include but are not limited to the following: - Experiencing same, different or even worse symptoms compared to before surgery. - Requiring further surgery or other forms of treatment presently or at some time in the future . - On an extreme but fortunately relatively rare basis severe complication such as blindness, stroke, heart attack, temporary and/or permanent nerve injury, paralysis, coma, or may occur, sometimes without known explanation. - Surgical complications may include but are not limited to risk of inf ection, fluid accumulation in the surgical dissection site, including a seroma or hematoma, that requires additional surgery, wound drainage, bleeding, new numbness or weakness, vision changes/loss, spinal fluid leakage, non-healing and/or infected incision, headaches, difficulty or inability to swallow, hoarseness, hemopneumothorax, pneumothorax, injury to nerves, spinal cord, blood vessels, lymphatics or other vital organs (i.e., bowel injury, injury to the great vessels); heterotopic bone formation; complications related to the hardware such as screws, rods, including misplaced hardware, device failure, hardware fracture/breakage, or hardware loosening; retained surgical instrumentations or devices and the need for further surgery. - Medical risks of the planned surgery include but are not limited to generalized Infections to the whole body or local areas outside of the surgical site (sepsis), heart attack, bleeding, anaphylaxis, meningitis, seizure, epilepsy, hearing loss, burn lambert, laceration of the head or other areas of the body, bruising, hypersensitivity of the skin, bladder over distension; allergic reaction; shoulder injury related to positioning; fat, blood and air clots to other areas of the body like heart, lungs, brain; failure of internal organs such as lungs, kidneys, liver and excessive bleeding. If blood transfusions are necessary, note that transfusions may cause intolerance reactions such as anaphylaxis or other complex reactions. Despite best efforts, the results of surgery might not heal in terms of bone, soft tissues such as skin, fascia, ligaments, and joints. [facility] has multiple operating rooms with single and overlapping rooms running daily. They currently function under the required guidelines as produced by the Senate [employer] Committee with regards to the overlapping rooms and will continue to comply with changes to this policy as they occur. The requirements include and are complied with as follows: (1) the critical portions of the overlapping rooms will not occur at the same time, (2) the attending physician will be physically present during the critical portions of the procedure and immediately available during the entire case, and (3) a back-up attending is designated should the primary attending not be immediately available. The patient has had a chance to review all the listed information, has been given print outs detailing this information, and has had all his/her questions answered to their satisfaction. It was my pleasure to have seen and examined Alexey. In our visit today we have had a chance to go over my understanding of our patient's current condition, the natural course history without intervention and various interventional options. Questions were invited and answered, and the patient wishes to proceed as outlined above. I have seen and examined the patient for 25 minutes and we have spent more than 50% of the time in repeat and detailed counseling about the patient's condition, its natural course history with out and as much as can be predicted with surgery and re-review of various surgical treatment options. In conclusion, Alexey and his requested we proceed with the above suggested surgery and are willing to accept risks and limitations of the suggested surgery as nature of the disease process and our best attempts at treatment for the condition. Thank you again for allowing us to be part of your patient's care. Please don't hesitate to contact me if you have any further questions. Signed and authenticated by: Bhar[facility] [address] [address]
[2023-04-25] MEDS ORDERED: HYDROcodone/APAP 5-325MG 1 EACH TAB PO PRN (19:04)
--- NOTE | 2023-04-25 19:08 | P.OP ---
Date of Procedure: 04/25/23 Preoperative Diagnosis: 1. LEFT SEPTIC OLECRANON BURSITITS FAILED OP TREATMENT Postoperative Diagnosis: 1. LEFT SEPTIC OLECRANON BURSITITS FAILED OP TREATMENT Procedure(s) Performed: 1. INCISION AND DRAINAGE WITH IRRIGATION AND EXCISIONAL DEBRIDEMENT SKIN SOFT TISSUE, BURSA, BONE, LEFT OLECRANON BURSA 8X5X4 CM USING THE FOLLOWING -KNIFE FOR SKIN INCISION AND DRAINAGE -RONGURE FOR EXCISION OF BURSAL SAC, SEPTIC AND NECROTIC TISSUES -CURETTE FOR SCRAPING OF TISSUES AND REMOVAL OF NECROTIC BONE AND TISSUES 2. COMPLEX CLOSURE 3 LAYER LEFT ELBOW 8X5X4 CM Implants: NONE Anesthesia: GETA Surgeon: Bharathi Kruger Business Process Specialist #1: Conchis Padilla (Conchis Padilla, DRINK MIXER Was present and assisted with all aspects of the case from positioning to dressing placement) Estimated Blood Loss (ml): 25 IV fluids (ml): 900 Urine output (ml): 0 Pathology: none sent Condition: stable Disposition: PACU Indications for Procedure: patient is a 63-year-old male presenting for evaluation of sudden onset left elbow pain, swelling redness and pain with range of motion after putting in a bathroom floor for his [id number]. It was my pleasure to have seen and examined Alexey. In our visit today we have had a chance to go over subjective complaints, physical examination findings and treatments including the natural course history without intervention and various interventional options. His imaging demonstrates soft tissue swelling over the left olecranon no fractures. On physical exam, Rickydemonstrates pain with motion of left elbow with left elbow septic bursitis redness swelling and tenderness to palpation, which is NV intact at this time. I have explained to the patient that this fracture needs stabilization. Based on the patients imaging, physical exam, and the rapid progression and disabling nature of her symptoms, at this time I recommend surgery in the form or a: incision and drainage with irrigation and debridement left elbow olecranon bursa I discussed the risk and benefits of this procedure at length with the patient. Questions were invited and answered, and the patient wishes to proceed as outl ined below. Currently, I am recommendin. incision and drainage with irrigation and debridement left elbow olecranon bursa Description of Procedure: The patient was seen and examined in the preoperative area. All preoperative protocols were followed. Informed consent was obtained risks and benefits of the procedure were discussed at length. Risks including bleeding infection damage to the surrounding tissue and risk of reoperation were discussed with the patient. Risk of anesthesia up to and including was a discussed with the patient. These are outlined in the risk reviewed. They were willing to accept these risks and all of the risks of surgery. The patient was given a weight- based dose of antibiotics in the form of PATIENT IS ON vANCO ON uNASYN ON THE FLOOR. The patient was seen and evaluated by the anesthesia team who deemed them fit for surgery. The site was marked, the patient was willing to proceed with the procedure. The patient was transferred to the operative suite by the Department of anesthesia. There were then drifted off to sleep by the department of anesthesia and geta anesthesia was used. Once adequate anesthesia had been obtained the patient was carefully transferred to the operative bed. All bony prominences were padded accordingly. SCDs were placed on the nonoperative lower extremities. Arms were well padded. LEFT ARM WAS EXPOSED DRAPED ACROSS THE PATIENT'S CHEST AND PADDED WELL. Tourniquet was placed on the patient's left upper arm and 10:15 placed around this Preoperative briefing was done with the operative team and everyone was ready for the procedure to start. The patients left arm was then prepped and draped in the normal sterile fashion. Timeout was then performed and all parties in agreement with the procedure to be performed. skin incision was made in a curvilinear fashion over the left olecranon bursa. On initial skin incision there was a small amount purulence noted over this area and this was cultured 2. After this there was just a large amount of hypertrophied bursa which was extremely taut in the area. This was debrided using a rongeur curet and skin knife. We debrided skin soft tissue and bone using the rongeur and curette. 9 L of antibiotic irrigation followed by Irricept was then run through the wound. Continue debridement with curet and rongeur was performed. Good bleeding surfaces were noted. After this the area was inspected and there is no further necrotic or abnormal tissue noted. The wound was then closed in layered fashion and 2 drains were placed Silastic within the wound. It was then dressed sterilely with Adaptic 4 x 4's ABDs and web roll. Was then overwrapped with an Marques wrap. The patient was then transferred back to their hospital bed. There were awakened by department of anesthesia having tolerated the procedure very well with no complications. The patient was then transported to the postoperative care unit in stable condition.
[2023-04-25] MEDS ORDERED: HYDROmorphone 0.5 MG/0.5 ML SYRINGE IVP ONE ×3 (19:10→19:31)
--- NOTE | 2023-04-25 19:50 | P.ANPRN ---
Procedure Note - Anesthesia - Nerve Block Performed Left Supraclavicular Single Time Out Performed: Yes Date of Procedure: 04/25/23 Procedure Start Time: 19:36 Procedure Stop Time: 19:43 Location of Patient: Phase I Indication: Acute Post-Operative Pain, Requested by Surgeon Specifically requested for management of pain by DrNina: Bharathi Kruger Preparation: Sterile Prep Position: Supine Needle Types: Pajunk Needle Gauge: 21 Ultrasound used to visualize needle placement: Yes Ultrasound used to observe medication spread: Yes Injectate: 0.5% Ropivacaine (see comment for volume) (15 ml + 15 ml 1 % Lidocain with epi) Adjunct: Epinephrine (see comment for dilution ratio) Blood Aspirated: No Pain Paresthesia on Injection Noted: No Resistance on Injection: Normal Image Stored and Saved: Yes Events: Uneventful and Well Tolerated
[2023-04-25] MEDS ORDERED: LACTATED RINGERS 1,000 ML IV ONE (20:13)
[2023-04-25] MEDS: DOXAZOSIN 1 MG TAB PO SCH (20:46)
[2023-04-25] MEDS: FINASTERIDE 5 MG TAB PO SCH (20:46)
--- NOTE | 2023-04-25 23:21 | P.PN ---
Subjective Progress Note Date: 04/25/23 Principal diagnosis: Left olecranon bursitis Patient is a 63-year-old male with a past medical history significant for hypertension hearing disorder reflux presenting to the ER this afternoon for evaluation of left elbow swelling and has been diagnosed with a left olecranon bursitis. On today's evaluation that is 04/25/2023, the patient continues to be afebrile the patient is breathing comfortably on room air, the patient denies chest pain or cough, patient denies abdominal pain and no nausea/vomiting and no diarrhea has been reported, patient pain to the left elbow has slightly decreased in intensity. Patient white count of 11.55, creatinine 1.0 as of yesterday , no labs today Objective - Vital Signs Vital signs: Vital Signs Temp 97.9 F 04/25/23 12:38 Pulse 71 04/25/23 12:38 Resp 14 04/25/23 12:38 BP 144/77 04/25/23 12:38 Pulse Ox 98 04/25/23 12:38 FiO2 Intake & Output 04/24/23 04/25/23 04/25/23 18:59 06:59 18:59 Intake Total 1000 0 Balance 1000 0 Weight 99.79 kg Intake: Intake, IV Titration 1000 Amount Ampicillin-Sulbactam 3 gm 100 In Sodium Chloride 0.9% 100 ml @ 200 mls/hr IVPB Q6H REAG[facility] Rx#:[id number] Sodium Chloride 0.9% 1, 900 000 ml @ 75 mls/hr IV . [id number] REAGAN Rx#:[id number] Oral 0 Other: Voiding Method Toilet Urinal # Voids 2 - Exam GENERAL DESCRIPTION: A middle-aged male lying in bed in no distress RESPIRATORY SYSTEM: Unlabored breathing , decreased breath sounds at bases HEART: S1 S2 regular rate and rhythm , ABDOMEN: Soft , no tenderness EXTREMITIES: Left elbow swelling and redness has slightly decreased - Labs CBC & Chem 7: 04/24/23 06:31 04/24/23 06:31 Labs: Microbiology - Last 24 Hours (Table) 04/23/23 13:22 Blood Culture - Preliminary Blood 04/23/23 13:22 Blood Culture - Preliminary Blood Assessment and Plan (1) Septic bursitis of elbow Current Visit: Yes Status: Acute Code(s): M71.129 - OTHER INFECTIVE BURSITIS, UNSPECIFIED ELBOW SNOMED Code(s): 361856536 Plan: 1patient was in the hospital with a left elbow pain swelling and redness likely related to septic olecranon bursitis as the patient noticed to having a s treaking redness extending to the left forearm and there was evidence of fluid collection on the ultrasound likely from gram-positive skin sabino gram-negative infection less likely but not entirely excluded 2-patient has been evaluated by Ortho and planning for left olecranon bursectomy and deep culture this afternoon 3-Pt to continue with vancomycin and Unasyn while waiting for the cultures to b e finalize Dictation was produced using [employer] dictation software. please excuse any grammatical, word or spelling errors. Time with Patient: Less than 30
[2023-04-26] MEDS: ACETAMINOPHEN TAB 325 MG TAB PO PRN ×2 (01:44→15:10)
[2023-04-26] MEDS: HYDROmorphone 1 MG/ML 1 ML SYRINGE IVP PRN ×4 (01:45→20:02)
[2023-04-26] MEDS: AMPICILLIN-SULBACTAM 3 GM in SODIUM CHLORIDE 0.9% 100 ML IVPB SCH ×4 (02:45→20:01)
[2023-04-26] MEDS ORDERED: VANCOMYCIN TROUGH DUE 1 EACH MISC MISCELLANE ONE (05:00)
[2023-04-26] MEDS: VANCOMYCIN 1,750 MG in SODIUM CHLORIDE 0.9% 500 ML 500 ML IVPB SCH ×2 (06:45→17:07)
[2023-04-26] MEDS: IBUPROFEN 800 MG TAB PO PRN ×2 (06:46→20:00)
[2023-04-26 07:40] LABS: Basophils % (A) 0 %; Eosinophils # (A) 0.2 k/uL (0-0.7); Eosinophils % (A) 2 %; HCT 33.4 % (39.0-53.0); HGB 10.6 gm/dL (13.0-17.5); Hypochromasia Slight; Lymphocytes # (A) 1.3 k/uL (1.0-4.8); Lymphocytes % (A) 15 %; MCH 29.7 pg (25.0-35.0); MCHC 31.9 g/dL (31.0-37.0); MCV 93.3 fL (80.0-100.0); Mean Platelet Volume 8.3; Monocytes # (A) 0.6 k/uL (0-1.0); Monocytes % (A) 7 %; Neutrophils # (A) 6.3 k/uL (1.3-7.7); Neutrophils % (A) 75 %; Platelet Count 278 k/uL (150-450); RBC 3.58 m/uL (4.30-5.90); RDW 13.7 % (11.5-15.5); WBC 8.5 k/uL (3.8-10.6)
[2023-04-26 07:57] LABS: African American GFR (CKD) >90 (>60 ml/min/1.73 sqM); Anion Gap 6 mmol/L; Blood Urea Nitrogen 16 mg/dL (9-20); Calcium 7.4 mg/dL (8.4-10.2); Carbon Dioxide 25 mmol/L (22-30); Chloride 105 mmol/L (98-107); Glucose 156 mg/dL (74-99); Non-African American GFR(CKD) >90 (>60 ml/min/1.73 sqM); Potassium 4.6 mmol/L (3.5-5.1); Sodium 136 mmol/L (137-145)
[2023-04-26] MEDS: GABAPENTIN 400 MG CAP PO SCH ×2 (09:28→20:00)
[2023-04-26] MEDS: LORATADINE 10 MG TAB PO SCH (09:28)
[2023-04-26] MEDS: PANTOPRAZOLE 40 MG TABLET PO SCH (09:28)
[2023-04-26] MEDS: MULTIVITAMINS, THERA 1 EACH TAB PO SCH (09:28)
[2023-04-26] MEDS: lisinopriL 20 MG TAB PO SCH (09:28)
[2023-04-26] MEDS: [UNRECOGNIZED DRUG - OTHER] PO SCH ×2 (09:29→20:01)
[2023-04-26] MEDS: OMEPRAZOLE 20 MG PO SCH ×2 (09:29→20:01)
--- NOTE | 2023-04-26 10:11 | P.PN ---
Progress Note - Text Progress Note Date: 04/26/23 patient seen and examined doing fairly well this morning. He complains of the pressure much better in his elbow that was before he is some burning pain is better after the block. He denies any fevers chills shortness of breath or chest pain overnight. Denies any other symptoms at this time Physical Exam: -Patient is alert and oriented 3 appears well-nourished well-hydrated is in no acute distress. They do not appear septic. -There is TTP [about the elbow that is mild [-Incision is CDI, no EEE, no drainage] -Upper extremities show [5] out of 5 strength in all major muscle groups. -Lower extremities with [5] out of 5 strength in all major muscle groups -There is [FROM] that is [painless] of the b/l UE and LE in all major joints. -They are intact to light touch sensation in C5 to T1 and L2 to S1 nerve distribution. -DTR [2]/4 all upper and lower extremities -Patient has palpable distal pulses all 4 ext -Compartments are soft and compressible. -Patient shows a negative Eufemia's [-Neg Hoffmans b/l] [-Neg Clonus b/l] [-Neg babinski b/l] Cranial nerves II through XII are grossly intact. postop day 1 left elbow incision and drainage for septic olecranon bursitis - weightbearing as tolerated left upper extremity limited range of motion however no deep flexion - okay to remove sling and move arm - dressing change tomorrow - away cultures for final antibiotics continue antibiotics currently - pain medication as needed - up and about encourage ambulation - ortho stable for discharge. Defer to ID for antibiotics
--- NOTE | 2023-04-26 14:03 | P.PN ---
Subjective Progress Note Date: 04/26/23 Principal diagnosis: Left olecranon bursitis Patient is a 63-year-old male with a past medical history significant for hypertension hearing disorder reflux presenting to the ER this afternoon for evaluation of left elbow swelling and has been diagnosed with a left olecranon bursitis. Pt is s/p I&D and left elbow bursectomy done on 04/25/23 On today's evaluation that is 04/26/2023, the patient remains to be afebrile the patient is breathing comfortably on room air and not requiring supplemental oxygen, the patient denies chest pain and no significant cough, patient denies abdominal pain and no nausea/vomiting or diarrhea patient pain to the left elbow has decreased in intensity. Patient white count of 8.5, creatinine 0.87, cultures are pending Objective - Vital Signs Vital signs: Vital Signs Temp 99.2 F 04/26/23 05:47 Pulse 103 H 04/26/23 08:40 Resp 18 04/26/23 08:40 BP 161/78 04/26/23 05:47 Pulse Ox 93 L 04/26/23 05:47 FiO2 Intake & Output 04/25/23 04/26/23 04/26/23 18:59 06:59 18:59 Intake Total 502 6498 Output Total 25 Balance 477 6498 Intake: IV 502 6498 Output: Estimated Blood Loss 25 Other: Voiding Method Toilet Toilet Urinal Urinal # Voids 2 1 - Exam GENERAL DESCRIPTION: A middle-aged male lying in bed in no distress RESPIRATORY SYSTEM: Unlabored breathing , decreased breath sounds at bases HEART: S1 S2 regular rate and rhythm , ABDOMEN: Soft , no tenderness EXTREMITIES: Left elbow is dressed in OR dressing - Labs CBC & Chem 7: 04/26/23 06:40 04/26/23 06:40 Labs: Abnormal Lab Results - Last 24 Hours (Table) 04/26/23 04/26/23 Range/Units 06:40 06:40 RBC 3.58 L (4.30-5.90) m/uL Hgb 10.6 L (13.0-17.5) gm/dL Hct 33.4 L (39.0-53.0) % Sodium 136 L (137-145) mmol/L Glucose 156 H (74-99) mg/dL Calcium 7.4 L (8.4-10.2) mg/dL Microbiology - Last 24 Hours (Table) 04/23/23 13:22 Blood Culture - Preliminary Blood 04/23/23 13:22 Blood Culture - Preliminary Blood Assessment and Plan (1) Septic bursitis of elbow Current Visit: Yes Status: Acute Code(s): M71.129 - OTHER INFECTIVE BURS ITIS, UNSPECIFIED ELBOW SNOMED Code(s): 693542412 Plan: 1patient was in the hospital with a left elbow pain swelling and redness likely related to septic olecranon bursitis as the patient noticed to having a streaking redness extending to the left forearm and there was evidence of fluid collection on the ultrasound likely from gram-positive skin sabino gram-negative infection less likely but not entirely excluded 2-patient has been evaluated by Ortho and s/p left olecranon bursectomy and deep culture on 04/25/23 3-Pt to continue with vancomycin and Unasyn while waiting for the cultures to be finalize to determine his discharge antibiotics Dictation was produced using [employer] dictation software. please excuse any grammatical, word or spelling errors. Time with Patient: Less than 30
[2023-04-26] MEDS: SODIUM CHLORIDE 0.9% 1,000 ML IV SCH ×2 (14:53→23:44)
[2023-04-26] MEDS: FINASTERIDE 5 MG TAB PO SCH (20:00)
--- NOTE | 2023-04-26 20:15 | P.PN ---
Subjective Progress Note Date: 04/26/23 63-year-old gentleman with past medical history significant for hypertension, obesity, chronic back pain, gastroesophageal reflux disease, hearing disorder and multiple other medical issues presented to the ER with left elbow pain. Patient had been out of state and installing a snap together floor, leaning on his left elbow for significant amounts of time. Denies prior or post trauma .Developed swelling and redness of the left elbow accompanied by fevers and chills. Denies chest pain, palpitations or shortness of breath. Denies nausea or vomiting or diarrhea. Denies lightheadedness dizziness or focal deficits. Initially was not able to extend the affected extremity. Afebrile, WBC, ESR and CRP elevated . Renal function stable .Started on IV fluid hydration and IV antibiotics. Objective - Vital Signs Vital signs: Vital Signs Temp 98.2 F 04/26/23 14:00 Pulse 94 04/26/23 14:00 Resp 18 04/26/23 14:00 BP 166/80 04/26/23 14:00 Pulse Ox 97 04/26/23 14:00 FiO2 Intake & Output 04/25/23 04/26/23 04/26/23 18:59 06:59 18:59 Intake Total 502 6498 Output Total 25 Balance 477 6498 Intake: IV 502 6498 Output: Estimated Blood Loss 25 Other: Voiding Method Toilet Toilet Urinal Urinal # Voids 2 1 - Exam PHYSICAL EXAMINATION: GENERAL: The patient is alert and oriented x3, not in any acute distress. Well developed, well nourished. HEENT: Pupils are round and equally reacting to light. EOMI. No scleral icterus. No conjunctival pallor. Normocephalic, atraumatic. No pharyngeal erythema. No thyromegaly. CARDIOVASCULAR: S1 and S2 present. No murmurs, rubs, or gallops. PULMONARY: Chest is clear to auscultation, no wheezing or crackles. ABDOMEN: Soft, nontender, nondistended, normoactive bowel sounds. No palpable organomegaly. MUSCULOSKELETAL: No joint swelling or deformity. EXTREMITIES: No cyanosis, clubbing, or pedal edema. NEUROLOGICAL: Gross neurological examination did not reveal any focal deficits. SKIN: No rashes. - Labs CBC & Chem 7: 04/26/23 06:40 10/14/23 06:40 Labs: Abnormal Lab Results - Last 24 Hours (Table) 04/26/23 04/26/23 Range/Units 06:40 06:40 RBC 3.58 L (4.30-5.90) m/uL Hgb 10.6 L (13.0-17.5) gm/dL Hct 33.4 L (39.0-53.0) % Sodium 136 L (137-145) mmol/L Glucose 156 H (74-99) mg/dL Calcium 7.4 L (8.4-10.2) mg/dL Microbiology - Last 24 Hours (Table) 04/23/23 13:22 Blood Culture - Preliminary Blood 04/23/23 13:22 Blood Culture - Preliminary Blood Assessment and Plan Assessment: Septic bursitis of left elbow Obesity, BMI 29.8 Gastroesophageal reflux disease Hypertension Plan: Continue on current medication regime,monitoring and symptomatic treatment. IV antibiotics of vancomycin and Unasyn as per ID. close monitoring of renal function, left wrist with repeat labs ordered for a.m. Gentle IV fluid hydration. NPO, Scheduled for I&D with Orthopedic Surgery today. Pain management.
[2023-04-26] MEDS: DOXAZOSIN 1 MG TAB PO SCH (23:46)
[2023-04-27] MEDS: AMPICILLIN-SULBACTAM 3 GM in SODIUM CHLORIDE 0.9% 100 ML IVPB SCH ×4 (02:38→21:02)
[2023-04-27] MEDS: VANCOMYCIN 1,750 MG in SODIUM CHLORIDE 0.9% 500 ML 500 ML IVPB SCH ×2 (05:37→18:19)
[2023-04-27 07:47] LABS: African American GFR (CKD) >90 (>60 ml/min/1.73 sqM); Non-African American GFR(CKD) >90 (>60 ml/min/1.73 sqM)
[2023-04-27] MEDS: MULTIVITAMINS, THERA 1 EACH TAB PO SCH (08:51)
[2023-04-27] MEDS: lisinopriL 20 MG TAB PO SCH (08:52)
[2023-04-27] MEDS: LORATADINE 10 MG TAB PO SCH (08:52)
[2023-04-27] MEDS: PANTOPRAZOLE 40 MG TABLET PO SCH (08:52)
[2023-04-27] MEDS: GABAPENTIN 400 MG CAP PO SCH ×2 (08:52→21:02)
[2023-04-27] MEDS: [UNRECOGNIZED DRUG - OTHER] PO SCH ×2 (08:53→21:02)
[2023-04-27] MEDS: OMEPRAZOLE 20 MG PO SCH ×2 (08:53→21:02)
[2023-04-27 12:37] LABS: Basophils % (A) 0 %; Eosinophils # (A) 0.3 k/uL (0-0.7); Eosinophils % (A) 4 %; HCT 34.4 % (39.0-53.0); HGB 10.8 gm/dL (13.0-17.5); Hypochromasia Moderate; Lymphocytes # (A) 1.5 k/uL (1.0-4.8); Lymphocytes % (A) 22 %; MCH 29.8 pg (25.0-35.0); MCHC 31.4 g/dL (31.0-37.0); Mean Platelet Volume 9.2; Monocytes # (A) 0.5 k/uL (0-1.0); Monocytes % (A) 7 %; Neutrophils # (A) 4.3 k/uL (1.3-7.7); Neutrophils % (A) 65 %; Platelet Count 286 k/uL (150-450); RBC 3.62 m/uL (4.30-5.90); RDW 13.6 % (11.5-15.5); WBC 6.7 k/uL (3.8-10.6)
--- NOTE | 2023-04-27 12:43 | P.PN ---
Subjective Progress Note Date: 04/27/23 Principal diagnosis: Septic bursitis of the left elbow Patient seen and examined this morning. Patient is ambulatory with an room. Patient reports that his pain is managed on current regimen. Surgical dressing to the left elbow has been taken down, small amount of serosanguineous drainage on dressing. Edges of the incisions are well approximated with sutures intact. 2 [place] drain present. New dressing has been applied. Overall patient states he is doing very well and feels much better since the procedure. He has noticed decreased pain and edema of the left elbow. Patient is looking forward to discharge. Awaiting wound cultures. No questions or concerns at this time. Objective - Vital Signs Vital signs: Vital Signs Temp 98.2 F 04/27/23 08:00 Pulse 81 04/27/23 08:00 Resp 16 04/27/23 08:00 BP 183/95 04/27/23 08:00 Pulse Ox 97 04/27/23 08:00 FiO2 Intake & Output 04/26/23 04/27/23 04/27/23 18:59 06:59 18:59 Intake Total 360 Output Total 900 Balance -540 Intake: Oral 360 Output: Urine 900 Other: Voiding Method Toilet Toilet Urinal Urinal # Voids 1 - Exam Left upper extremity: Surgical incision over the left elbow, edges are well approximated with sutures intact. 2 [place] drains present. New dressing applied. No obvious strength deficits were appreciated when examining the shoulder, elbow, wrist and hand Sensory exam to light touch is intact throughout the extremity Ulnar pulses are 2+ - Labs CBC & Chem 7: 04/27/23 06:26 04/27/23 06:26 Labs: Microbiology - Last 24 Hours (Table) 04/25/23 16:00 Wound Culture - Preliminary Elbow - Left Presumptive Staph aureus 04/23/23 13:22 Blood Culture - Preliminary Blood 04/23/23 13:22 Blood Culture - Preliminary Blood Assessment and Plan Assessment: Postop day 2: I&D of the left elbow Left elbow pain Left elbow septic olecranon bursitis Other medical comorbidities Plan: 1. Appreciate medical management 2. Continue to ice and elevate left upper extremity. 3. Continue with IV antibiotics, wound cultures are pending 4. Pain management - continue with IV and oral medication at this time 4. GI prophylaxis - per medicine 5. DVT prophylaxis - mechanical 6. Appreciate consult, patient is cleared for discharge from an orthopedic standpoint, no further recommendations.
[2023-04-27] MEDS: SODIUM CHLORIDE 0.9% 1,000 ML IV SCH (16:03)
--- NOTE | 2023-04-27 17:05 | P.PN ---
Subjective Progress Note Date: 04/27/23 63-year-old gentleman with past medical history significant for hypertension, obesity, chronic back pain, gastroesophageal reflux disease, hearing disorder and multiple other medical issues presented to the ER with left elbow pain. Patient had been out of state and installing a snap together floor, leaning on his left elbow for significant amounts of time. Denies prior or post trauma .Developed swelling and redness of the left elbow accompanied by fevers and chills. Denies chest pain, palpitations or shortness of breath. Denies nausea or vomiting or diarrhea. Denies lightheadedness dizziness or focal deficits. Initially was not able to extend the affected extremity. Afebrile, WBC, ESR and CRP elevated . Renal function stable .Started on IV fluid hydration and IV antibiotics. 04/27/2023 Patient is seen and evaluated resting comfortably patient had dressing change to left elbow this morning by orthopedic service; [place] of incision well approximated; [place] drain is present Vital signs are reviewed and remained stable, patient remains afebrile, Lab review shows to be 6.7, hemoglobin of 10.8 and platelet count of 286, -- Patient has been cleared for discharge by orthopedic service - Remains on IV antibiotics in form of vancomycin and Unasyn per ID recom mendations; deep tissue culture reveals presumptive staph species -- ID recommending to continue with IV antibiotics to final culture and sensitivity is available Objective - Vital Signs Vital signs: Vital Signs Temp 98.2 F 04/27/23 08:00 Pulse 81 04/27/23 08:40 Resp 16 04/27/23 08:40 BP 183/95 04/27/23 08:00 Pulse Ox 97 04/27/23 08:00 FiO2 Intake & Output 04/26/23 04/27/23 04/27/23 18:59 06:59 18:59 Intake Total 360 200 Output Total 900 Balance -540 200 Intake: Oral 360 200 Output: Urine 900 Other: Voiding Method Toilet Toilet Toilet Urinal Urinal Urinal # Voids 1 - Exam PHYSICAL EXAMINATION: GENERAL: The patient is alert and oriented x3, not in any acute distress. Well developed, well nourished. HEENT: Pupils are round and equally reacting to light. EOMI. No scleral icterus. No conjunctival pallor. Normocephalic, atraumatic. No pharyngeal erythema. No thyromegaly. CARDIOVASCULAR: S1 and S2 present. No murmurs, rubs, or gallops. PULMONARY: Chest is clear to auscultation, no wheezing or crackles. ABDOMEN: Soft, nontender, nondistended, normoactive bowel sounds. No palpable organomegaly. MUSCULOSKELETAL: No joint swelling or deformity. EXTREMITIES: No cyanosis, clubbing, or pedal edema. NEUROLOGICAL: Gross neurological examination did not reveal any focal deficits. SKIN: No rashes. - Labs CBC & Chem 7: 04/27/23 06:26 04/27/23 06:26 Labs: Microbiology - Last 24 Hours (Table) 04/25/23 16:00 Wound Culture - Preliminary Elbow - Left Presumptive Staph aureus 04/23/23 13:22 Blood Culture - Preliminary Blood 04/23/23 13:22 Blood Culture - Preliminary Blood Assessment and Plan Assessment: Septic bursitis of left elbow Obesity, BMI 29.8 Gastroesophageal reflux disease Hypertension Plan: Continue on current medication regime,monitoring and symptomatic treatment. IV antibiotics of vancomycin and Unasyn as per ID. close monitoring of renal function, left wrist with repeat labs ordered for a.m. Gentle IV fluid hydration. NPO, Scheduled for I&D with Orthopedic Surgery today. Pain management.
[2023-04-27] MEDS: DOXAZOSIN 1 MG TAB PO SCH (21:02)
[2023-04-27] MEDS: FINASTERIDE 5 MG TAB PO SCH (21:02)
[2023-04-28] MEDS: AMPICILLIN-SULBACTAM 3 GM in SODIUM CHLORIDE 0.9% 100 ML IVPB SCH ×2 (02:41→08:57)
[2023-04-28] MEDS: ACETAMINOPHEN TAB 325 MG TAB PO PRN ×2 (02:43→10:05)
[2023-04-28] MEDS: SODIUM CHLORIDE 0.9% 1,000 ML IV SCH (02:53)
[2023-04-28] MEDS: VANCOMYCIN 1,750 MG in SODIUM CHLORIDE 0.9% 500 ML 500 ML IVPB SCH (05:45)
[2023-04-28] MEDS: LORATADINE 10 MG TAB PO SCH (07:54)
[2023-04-28] MEDS: lisinopriL 20 MG TAB PO SCH (07:54)
[2023-04-28] MEDS: GABAPENTIN 400 MG CAP PO SCH (07:54)
[2023-04-28] MEDS: MULTIVITAMINS, THERA 1 EACH TAB PO SCH (07:54)
[2023-04-28] MEDS: PANTOPRAZOLE 40 MG TABLET PO SCH (07:54)
[2023-04-28] MEDS: [UNRECOGNIZED DRUG - OTHER] PO SCH (07:55)
[2023-04-28] MEDS: OMEPRAZOLE 20 MG PO SCH (07:55)
[2023-04-28] MEDS: IBUPROFEN 800 MG TAB PO PRN (07:57)
[2023-04-28 08:40] VITALS: BP 169/95; PULSE 87; RESP 19; TEMP 97.7
--- NOTE | 2023-04-28 09:00 | P.PN ---
Subjective Progress Note Date: 04/28/23 Principal diagnosis: Septic bursitis of the left elbow Patient seen and examined this morning. Patient is ambulatory with an room. Patient reports that his pain is managed on current regimen. Surgical dressing is CDI. Dr. Lewis to change dressing. Informed nursing that the racheal drains may be removed at that time. Overall patient states he is doing very well and feels much better since the procedure. He has noticed decreased pain and edema of the left elbow. Patient is looking forward to discharge. No questions or concerns at this time. Objective - Vital Signs Vital signs: Vital Signs Temp 97.6 F 04/28/23 01:48 Pulse 84 04/28/23 01:48 Resp 18 04/28/23 01:48 BP 159/87 04/28/23 01:48 Pulse Ox 96 04/28/23 01:48 FiO2 Intake & Output 04/27/23 04/28/23 04/28/23 18:59 06:59 18:59 Intake Total 200 200 Balance 200 200 Intake: Oral 200 200 Other: Voiding Method Toilet Toilet Urinal Urinal # Voids 8 2 # Bowel Movements 4 - Exam Left upper extremity: Surgical incision over the left elbow, dressing is CDI. No obvious strength deficits were appreciated when examining the shoulder, elbow, wrist and hand Sensory exam to light touch is intact throughout the extremity Ulnar pulses are 2+ - Labs CBC & Chem 7: 04/27/23 06:26 04/27/23 06:26 Labs: Abnormal Lab Results - Last 24 Hours (Table) 04/27/23 Range/Units 06:26 RBC 3.62 L (4.30-5.90) m/uL Hgb 10.8 L (13.0-17.5) gm/dL Hct 34.4 L (39.0-53.0) % Microbiology - Last 24 Hours (Table) 04/25/23 16:00 Gram Stain - Final Elbow - Left Wound Culture - Final Staphylococcus aureus 04/25/23 16:00 Gram Stain - Final Elbow - Left Wound Culture - Final Staphylococcus aureus Assessment and Plan Assessment: Postop day 3: I&D of the left elbow Left elbow pain Left elbow septic olecranon bursitis Other medical comorbidities Plan: 1. Appreciate medical management 2. Continue to ice and elevate left upper extremity. 3. Continue with IV antibiotics 4. Pain management - continue with IV and oral medication at this time 4. GI prophylaxis - per medicine 5. DVT prophylaxis - mechanical 6. Appreciate consult, patient is cleared for discharge from an orthopedic standpoint, no further recommendations.
[2023-04-28 11:38] LABS: BUN/Creat Ratio 14.89 Ratio (12.00-20.00); Blood Urea Nitrogen 13.4 mg/dL (9.0-27.0); Calcium 8.3 mg/dL (8.7-10.3); Carbon Dioxide 24.6 mmol/L (21.6-31.8); Chloride 107 mmol/L (96-109); Glucose 98 mg/dL (70-110); Potassium 4.2 mmol/L (3.5-5.5); Sodium 141 mmol/L (135-145)
[2023-04-28 11:47] LABS: Basophils # (A) 0.04 X 10*3/uL (0.00-0.10); Basophils % (A) 0.4 %; Eosinophils # (A) 0.31 X 10*3/uL (0.04-0.35); Eosinophils % (A) 3.4 %; HCT 33.1 % (39.6-50.0); HGB 10.3 d/dL (13.0-17.0); Lymphocytes # (A) 1.33 X 10*3/uL (0.90-5.00); Lymphocytes % (A) 14.8 %; MCH 28.6 pg (27.0-32.0); MCHC 31.1 d/dL (32.0-37.0); MCV 91.9 FL (80.0-97.0); Mean Platelet Volume 10.5 FL (9.5-12.2); Monocytes # (A) 0.92 X 10*3/uL (0.20-1.00); Monocytes % (A) 10.2 %; NRBC Per 100 WBC 0 X 10*3/uL (0.00-0.01); Neutrophils # (A) 6.37 X 10*3/uL (1.80-7.70); Neutrophils % (A) 70.8 %; Platelet Count 307 X 10*3/uL (140-440); RDW 14.2 % (11.5-14.5); WBC 9.01 X 10*3/uL (4.50-10.00)
[2023-04-29] MEDS ORDERED: VANCOMYCIN TROUGH DUE 1 EACH MISC MISCELLANE ONE (05:00)
== END 2023-04-28 12:53 | disposition home or self-care (01) | DRG 512 ==
LOC: EC 11:52 → 5NMEDONC 16:18
PROVIDERS: ADMIT Family Medicine; ATTEND Family Medicine
PROC: 0PBL0ZZ Excision of Left Ulna, Open Approach (ICD-10-PCS; principal; 2023-04-25 07:30)
DX: M71.122 Other infective bursitis, left elbow (principal); E66.9 Obesity, unspecified; H91.90 Unspecified hearing loss, unspecified ear; I10 Essential (primary) hypertension; K21.9 Gastro-esophageal reflux disease without esophagitis; Z77.098 Contact with and (suspected) exposure to other hazardous, chiefly nonmedicinal, chemicals; Z68.29 Body mass index [BMI] 29.0-29.9, adult; Z79.899 Other long term (current) drug therapy; Z80.0 Family history of malignant neoplasm of digestive organs
CPT/HCPCS: 36415; 64415; 80048; 80053; 80202; 82565; 85025; 85652; 86140; 87040; 87070; 87075; 87077; 87186; 87205; 96361; 96365; 96366; 96367; 96375; 96376; 99285

== ENCOUNTER → 2023-07-24 | Outpatient (CLI) | payer OTHER ==
[2023-07-24 11:03] LABS: Basophils # (A) 0.05 X 10*3/uL (0.00-0.10); Basophils % (A) 0.7 %; Eosinophils # (A) 0.12 X 10*3/uL (0.04-0.35); Eosinophils % (A) 1.7 %; HCT 39.5 % (39.6-50.0); HGB 12.8 g/dL (13.0-17.0); Lymphocytes # (A) 1.91 X 10*3/uL (0.90-5.00); Lymphocytes % (A) 27.6 %; MCH 28.4 pg (27.0-32.0); MCHC 32.4 g/dL (32.0-37.0); MCV 87.8 FL (80.0-97.0); Mean Platelet Volume 10.9 FL (9.5-12.2); Monocytes % (A) 10.1 %; NRBC Per 100 WBC 0 X 10*3/uL (0.00-0.01); Neutrophils % (A) 59.2 %; Platelet Count 288 X 10*3/uL (140-440); RDW 14.2 % (11.5-14.5); WBC 6.93 X 10*3/uL (4.50-10.00)
[2023-07-24 11:11] LABS: Blood Urea Nitrogen 16.2 mg/dL (9.0-27.0); Calcium 9.3 mg/dL (8.7-10.3); Carbon Dioxide 24.3 mmol/L (21.6-31.8); Chloride 104 mmol/L (96-109); Glucose 108 mg/dL (70-110); Potassium 4.4 mmol/L (3.5-5.5); Sodium 139 mmol/L (135-145)
== END | disposition home or self-care (01) ==
LOC: LABPAT 07:35
PROVIDERS: ATTEND Orthopaedic Surgery
DX: Z01.812 Encounter for preprocedural laboratory examination (principal); Z22.322 Carrier or suspected carrier of Methicillin resistant Staphylococcus aureus; M17.11 Unilateral primary osteoarthritis, right knee
CPT/HCPCS: 80048; 85025; 87070

== ENCOUNTER → 2023-08-07 | Outpatient (CLI) | payer OTHER ==
[2023-08-07 08:07] LABS: INR 0.9 (<1.2); Prothrombin Time 10.4 sec (10.0-12.5)
== END | disposition home or self-care (01) ==
LOC: LABPAT 07:30
PROVIDERS: ATTEND Orthopaedic Surgery
DX: Z01.812 Encounter for preprocedural laboratory examination (principal); M17.11 Unilateral primary osteoarthritis, right knee
CPT/HCPCS: 85610

== ENCOUNTER 2023-08-11 07:53 | Day surgery (SDC) | payer OTHER ==
[2023-08-04 15:09] VITALS: BMI 28.7
[~2023-08-11 07:53] MED LIST changes: +ACETAMINOPHEN TAB 500 MG TAB PO PRN; +DEXAMETHASONE SOD PHOSPHATE 4 MG/ML 1 ML VIAL IV ONE; -LACTATED RINGERS 1,000 ML IV SCH; +LIDOCAINE 1% (10MG/ML) FOR IV START INTRADERMA PRN; +MELOXICAM 7.5 MG TAB PO PRN; +ONDANSETRON 4 MG/2 ML VIAL IVP ONE; +TRANEXAMIC 1,000 MG/100ML-NACL 1,000 MG in SALINE 1 100ML.BAG IVPB PRN; +droPERidol 5 MG/2 ML VIAL IVP ONE
[2023-08-11] MEDS: LACTATED RINGERS 1,000 ML IV SCH (08:22)
[2023-08-11] MEDS ORDERED: DEXAMETHASONE SOD PHOSPHATE 4 MG/ML 1 ML VIAL IVP ONE (08:57)
[2023-08-11] MEDS ORDERED: ONDANSETRON 4 MG/2 ML VIAL IVP ONE (08:57)
[2023-08-11] MEDS ORDERED: MIDAZOLAM 2 MG/2 ML VIAL IVP ONE (09:00)
[2023-08-11] MEDS ORDERED: LIDOCAINE 1% INJ 10MG/ML (20 ML MDV) ONE (09:50)
[2023-08-11] MEDS ORDERED: NEOSTIGMINE 1 MG/ML 10 ML VIAL ONE (09:50)
[2023-08-11] MEDS ORDERED: DEXAMETHASONE SOD PHOSPHATE 4 MG/ML 1 ML VIAL ONE (09:50)
[2023-08-11] MEDS ORDERED: PROPOFOL 10 MG/ML 20 ML VIAL IV ONE (09:50)
[2023-08-11] MEDS ORDERED: fentaNYL (PF) 50 MCG/ML 2 ML AMP ONE (09:50)
[2023-08-11] MEDS ORDERED: MIDAZOLAM 2 MG/2 ML VIAL ONE (09:50)
[2023-08-11] MEDS ORDERED: ROPIVACAINE 5 MG/ML 30 ML VIAL ONE (09:50)
[2023-08-11] MEDS ORDERED: GLYCOPYRROLATE 0.2 MG/ML 2 ML VIAL ONE (09:50)
[2023-08-11] MEDS ORDERED: HYDROmorphone (PF) 1 MG/ML ONE (09:50)
[2023-08-11] MEDS ORDERED: SUCCINYLCHOLINE CHLORIDE 200 MG/10 ML VIAL IV ONE (09:50)
[2023-08-11] MEDS ORDERED: ROCURONIUM 10 MG/ML (5 ML VIAL) IV ONE (09:50)
[2023-08-11] MEDS ORDERED: TRANEXAMIC 1,000 MG/100ML-NACL PREMIX BAG ONE (09:50)
[2023-08-11] MEDS ORDERED: ceFAZolin 1,000 MG in SODIUM CHLORIDE 0.9% 1,000 ML IRRIGATION ONE (10:28)
[2023-08-11] MEDS ORDERED: LACTATED RINGERS 1,000 ML IV ONE ×2 (11:07→11:36)
[2023-08-11] MEDS ORDERED: NALOXONE 0.4 MG/ML 1 ML VIAL IV PRN (11:36)
[2023-08-11] MEDS ORDERED: HYDROcodone/APAP 5-325MG 1 EACH TAB PO PRN (11:36)
[2023-08-11] MEDS ORDERED: HYDROmorphone 0.5 MG/0.5 ML SYRINGE IVP PRN ×2 (11:36)
[2023-08-11] MEDS ORDERED: ONDANSETRON 4 MG/2 ML VIAL IVP PRN (11:36)
--- NOTE | 2023-08-11 11:36 | P.OP ---
Date of Procedure: 08/11/23 Preoperative Diagnosis: Right knee osteoarthritis Postoperative Diagnosis: Right knee osteoarthritis Procedure(s) Performed: Right total knee arthroplasty Implants: 1. DePuy attune size 7 right cruciate retaining cemented femur 2. DePuy attune size 7 fixed-bearing cemented tibial baseplate 3. DePuy attune size 7 fixed-bearing cruciate retaining 10 mm polyethylene tibial insert 4. DePuy attune 41 mm all polyethylene cemented patella Anesthesia: GETA, regional (Adductor canal catheter, iPAQ block) Surgeon: Ronaldo Pham Associate Professor Of Art #1: Agusto Jaquez Estimated Blood Loss (ml): 45 Pathology: none sent Condition: stable Disposition: PACU Indications for Procedure: 63-year-old gentleman seen with symptomatic right knee osteoarthritis. After having treatment options discussed, he elected to proceed with total knee arthroplasty. Operative Findings: See description of procedure Description of Procedure: Patient was taken to the operative suite after having an adductor canal catheter placed by the department of anesthesia. Patient underwent a general anesthetic by the department of anesthesia. Patient was given preoperative IV intake antibiotics and TXA. A well-padded tourniquet was placed about the right lower extremity. The lower extremity was then prepped and draped in the normal sterile orthopedic fashion. The extremity was elevated, a tourniquet was insufflated to 300. A standard anterior incision was made sharply through skin. Dissection was taken down through the subcutaneous soft tissues down to the extensor mechanism. A medial arthrotomy was performed, patella was everted and knee was flexed. There was advanced osteoarthritis noted. I introduced my distal intramedullary femoral drill. I then introduced the distal femoral cutti ng jig. Tramaine NAVARRO secured the cutting jig with 2 pins. I held retractors in position while Tramaine NAVARRO performed the distal femoral resection through the guide area we now removed her distal femoral cutting guide. We now placed our 4-in-1 femoral cutting block and positioned and it was secured with 2 pins by Tramaine NAVRARO while I held the block in position. The distal femoral finishing was now completed. A proximal tibial cutting guide was positioned. I held the guide in the appropriate position with both hands well Tramaine NAVARRO inserted stabilizing pins into the guide. Proximal tibial cut was made. We now placed a trial femoral component into position, along with an appropriate size tibial tray and insert. We now took the knee through range of motion and had full extension good flexion and good overall soft tissue balance noted. The patella was everted and stabilized with 2 towel clips held by Tramaine NAVARRO while I performed a flush with patellar quad tendon utilizing a fresh sawblade. We templated the patella, appropriate drill holes were made. An appropriate trial patella was positioned, knee was taken through full range of motion with the patella tracking very nicely. The trial patella was removed. Drill holes were made through the femoral component. All trial components were removed after marking off the appropriate rotation of the tibia. Retractors were now positioned along the proximal tibia. An appropriate keel punch was made with the appropriate size tibial guide by myself on Tramaine NAVARRO assisted by holding retractors. At this point appropriate size implants were chosen and opened. The joint was irrigated copiously with pulse lavage mechanical irrigation. The wound was irrigated with pulse lavage mechanical irrigation. We mixed antibiotic methylmethacrylate. We placed the knee into flexion. We placed multiple retractors assisted by Tramaine NAVARRO to expose the proximal tibia. Once the methyl methacrylate was ready, the tibial component was cemented into place removing any excess methylmethacrylate form by both myself and Tramaine NAVARRO. The femoral component was cemented into place removing the removing any excess methylmethacrylate performed by both myself and Tramaine NAVARRO. We then inserted the appropriate size polyethylene tibial insert. We made sure that it was locked into position. We took the knee into full extension, and then back in a flexion making sure we had removed any excess methylmethacrylate. The patellar component was then cemented down and secured with clamp. Excess methylmethacrylate removed. We kept the knee in full extension, patellar clamp in position until methylmethacrylate had hardened. Once it had hardened the patellar clamp was removed. The knee was taken through full range of motion. The patella tracked nicely. There was good soft tissue balancing. The tourniquet was now released. Additional hemostasis was achieved via electrocautery. A second gram of TXA was given. The wound again was irrigated with pulse lavage mechanical irrigation. The extensor mechanism was repaired with Ethibond suture. We checked the repair with range of motion and it was stable. The subcutaneous soft tissues were repaired with Vicryl in layers. The skin was approximated with pernio/Dermabond. Sterile dressings were applied followed by loose web roll and Marques bandage. The patient was transferred to a bed, and taken to recovery in stable and satisfactory condition. Tramaine NAVARRO assisted with this complex procedure.
[2023-08-11] MEDS ORDERED: ROPIVACAINE 0.75% 1,100 MG, SODIUM CHLORIDE 0.9% 500 ML 403 ML, EMPTY PAIN BALL 1 EACH MISCELLANE PRN ×2 (12:07)
[2023-08-11] MEDS: HYDROmorphone 0.5 MG/0.5 ML SYRINGE IVP PRN ×4 (12:16→12:57)
--- NOTE | 2023-08-11 12:26 | XR ---
EXAMINATION TYPE: XR knee limited RT DATE OF EXAM: 08/11/2023 COMPARISON: None HISTORY: Postop right knee TECHNIQUE: 2 view right knee FINDINGS: Tibial and femoral components have been placed. There are screws within the distal femur. P ostsurgical soft tissue changes are evident. No acute fracture or dislocation. IMPRESSION: 1. Postsurgical changes post right knee prosthesis placement. No acute fractures are evident.
--- NOTE | 2023-08-11 12:46 | P.ANPRN ---
Procedure Note - Anesthesia - Nerve Block Performed Right Adductor Canal Infusion Time Out Performed: Yes Date of Procedure: 08/11/23 Procedure Start Time: 09:00 Procedure Stop Time: :14 Location of Patient: PreOp Indication: Acute Post-Operative Pain, Requested by Surgeon Sedation Type: Sedate with meaningful contact maintained Preparation: Sterile Prep, Sterile Dressing Position: Supine Catheter: Indwelling Needle Types: Pajunk Needle Gauge: 21 Ultrasound used to visualize needle placement: Yes Ultrasound used to observe medication spread: Yes Blood Aspirated: No Pain Paresthesia on Injection Noted: No Resistance on Injection: Normal Image Stored and Saved: Yes Events: Uneventful and Well Tolerated (Ropivacaine 0.5% 20 cc plus dexamethasone 4 mg)
--- NOTE | 2023-08-11 12:47 | P.ANPRN ---
Procedure Note - Anesthesia - Nerve Block Performed Right [place] Single Time Out Performed: Yes Date of Procedure: 08/11/23 Procedure Start Time: 09:15 Procedure Stop Time: 09:17 Location of Patient: PreOp Indication: Acute Post-Operative Pain, Requested by Surgeon Sedation Type: Sedate with meaningful contact maintained Preparation: Sterile Prep Position: Supine Needle Types: [place]unk Needle Gauge: 21 Ultrasound used to visualize needle placement: Yes Ultrasound used to observe medication spread: Yes Blood Aspirated: No Pain Paresthesia on Injection Noted: No Resistance on Injection: Normal Image Stored and Saved: Yes Events: Uneventful and Well Tolerated (Ropivacaine 0.5% 20cc plus dexamethasone 4 mg)
[2023-08-11] MEDS: HYDROcodone/APAP 7.5-325MG 1 EACH TAB PO PRN ×2 (15:23→21:09)
[2023-08-11] MEDS: HYDROmorphone 1 MG/ML 1 ML SYRINGE IVP PRN ×2 (15:23→19:52)
[2023-08-12] MEDS: HYDROmorphone 1 MG/ML 1 ML SYRINGE IVP PRN ×2 (00:02→06:28)
[2023-08-12] MEDS: HYDROcodone/APAP 7.5-325MG 1 EACH TAB PO PRN ×2 (02:31→08:19)
[2023-08-12] MEDS: LACTATED RINGERS 1,000 ML IV SCH (06:48)
--- NOTE | 2023-08-12 07:48 | P.PN ---
Progress Note - Text Progress Note Date: 08/12/23 (647) Anesthesiology Postop day 1 status post total knee arthroplasty with adductor canal catheter. Patient doing well. VAS 7 out of 10. Gross strength intact in lower extremity. Denies alterations in sensorium. Catheter site intact. Heart regular rate Lungs nonlabored Abdomen nondistended Assessment: Postop day 1 status post total knee arthroplasty with adductor canal catheter Plan: 1.All questions answered. Maintain catheter 2 more days with patient removal at home. Instructions to be given at discharge. 2.This note was dictated using Pulse software. Please be advised there is a potential for misspellings or errors in as400 developer.
--- NOTE | 2023-08-12 08:16 | P.PN ---
Subjective Progress Note Date: 08/12/23 Principal diagnosis: Status post right total knee arthroplasty Patient evaluated at bedside, his is present. Patient states the pain is better controlled today. He is anticipating working with physical therapy. Denies any headaches, lightheadedness, chest pain or shortness of breath. Objective - Vital Signs Vital signs: Vital Signs Temp 98.6 F 08/12/23 01:56 Pulse 98 08/12/23 01:56 Resp 21 08/12/23 01:56 BP 136/73 08/12/23 01:56 Pulse Ox 94 L 08/12/23 01:56 FiO2 Intake & Output 08/11/23 08/12/23 08/12/23 18:59 06:59 18:59 Intake Total 1851 900 Output Total 45 800 Balance 1806 100 Weight 99 kg Intake: IV 1851 Oral 900 Output: Urine 800 Estimated Blood Loss 45 Other: # Voids 2 - Exam Right lower extremity: Incision is clean, dry, and intact. The foam dressing is in good condition. There is minimal soft tissue swelling and ecchymosis surrounding the medial and lateral aspects of the incision. Calf is soft, no tenderness with palpation. Plantar flexion, dorsiflexion, EHL, FHL are intact. Sensory exam to light touch throughout the extremity is intact, [dorsal pedis pulses 2+. Assessment and Plan Assessment: postoperative day #1 status post right total knee arthroplasty Plan: pain control, plan for discharge home on [place] 7.5 mg / 325 mg. We also discussed continuing the use of gabapentin which is already prescribed for him. Stool softeners are available DVT prophylaxis, aspirin 81 mg twice daily for 30 days wound care instructions were discussed, this to include showering instructions, bandage instructions and pain catheter instructions icing and elevating techniques were discussed Home PT/nursing after discharge medical recommendations appreciated discharge planning: Patient stable for discharge home today Time with Patient: Less than 30
[2023-08-12 08:47] VITALS: BP 129/78; PULSE 83; RESP 18; TEMP 97.8
[2023-08-12] MEDS ORDERED: GABAPENTIN 400 MG CAP PO SCH (09:00)
[2023-08-12] MEDS ORDERED: PANTOPRAZOLE 40 MG TABLET PO SCH (09:00)
[2023-08-12] MEDS ORDERED: lisinopriL 10 MG TAB PO SCH (09:00)
--- NOTE | 2023-08-12 09:17 | P.DS ---
Providers Date of admission: 08/11/2023 Expected date of discharge: 08/12/23 Attending physician: Ronaldo Pham Consults: 08/11/23 17:12 Consult Physician Routine Consulting Provider: Nathan Wolff Consult Reason/Comments: medical management Do you want consulting provider notified?: Yes Primary care physician: Liberty Dougherty Hospital Course: Date of admission: 08/11/2023 Date of discharge: 08/12/2023 Admission diagnosis: status post right total knee arthroplasty Discharge diagnosis: same Attending physician: Dr. Pham Surgical procedures: right total knee arthroplasty Brief history: Patient is a 63-year-old male with a history of progressive primary right knee osteoarthritis. At this point patient has failed conservative treatment measures and has opted to proceed with a elective right total knee arthroplasty. Hospital course: Details of patient's surgery can be found in operative report. Patient tolerated the procedure well and was subsequently transported to orthopedic floor. Patient's orthopeidc and medical care was provided daily. Patient had daily laboratory tests performed for evaluation of overall blood counts. Patient had daily physical therapy to include strengthening range of motion as well as education with walker ambulation. Patient was treated with Lovenox for their postoperative DVT prophylaxis during their inpatient stay. Patient was noted to have a relatively uneventful postoperative course. Patient reported satisfactory pain control with oral pain medications by postoperative day 1. Patient showed satisfactory progress with physical therapy. Patient moved steadily through the program and had no difficulty meeting the goals by postoperative day 1. Given patient's otherwise satisfactory course and having m et physical therapy goals, plan is to discharge patient home on postoperative day 1. Discharge condition/disposition: Patient will be discharged home in stable condition. Discharge medications: Instructions are given on resumption of patient's normal daily medications per primary care recommendation, in addition patient will be prescribed [place] 7.5 mg / 325 mg, aspirin 81 mg. Discharge instructions: 1. Wound care and infection precautions, keep incision dry and covered while showering, no lotions, creams, moisturizers. No soaking, tubs, pools, hottubs. Do not scrub over the incision. 2. Weight-bear as tolerated with walker / cane until follow-up. 3. Ice and elevate when necessary. Do not exceed 20 minutes per hour with ice pack. 4. Utilize compression sleeve until seen at first follow up appointment. 5. Visiting nursing care. 6. Home physical therapy including home CPM. 7. Pain meds and anticoagulants per prescription. 8. Pain medication has potential to cause constipation. Increase oral fluid and fiber intake. Contact primary care provider if you have not had a bowel movement within 48 hours after discharge 9. No anti-inflammatory medication until discussed at first post operative visit, this including Motrin, Aleve, Mobic, Diclofenac 10. Follow up in office at 2 weeks postop with Tramaine Jaquez PA-C/Demetrius Chairez 11. Follow up with your primary care doctor 7-10 days after discharge. 12. Contact [facility] with any questions, . Procedures: right total knee arthroplasty Plan - Discharge Summary Discharge Rx Participant: Yes New Discharge Prescriptions: New Aspirin [Adult Low Dose Aspirin EC] 81 mg PO BID #60 tab HYDROcodone/APAP 7.5-325MG [[place] 7.5] 1 each PO Q4HR PRN #42 tab PRN Reason: Pain Discontinued Ibuprofen [Motrin] 800 mg PO TID PRN PRN Reason: Pain No Action Omeprazole [PriLOSEC] 20 mg PO DAILY Finasteride [Proscar] 5 mg PO HS Doxazosin [Cardura] 1 mg PO HS tadalafiL [Cialis] 20 mg PO DAILY PRN PRN Reason: sexual intercourse Loratadine [Claritin] 10 mg PO DAILY lisinopriL [Zestril] 30 mg PO DAILY Naproxen Sodium/Pseudoephedrin [Aleve-D Sinus and Cold Caplet] 1 tab PO Q12HR PRN PRN Reason: Cold Symptoms Multivitamins, Thera [Multivitamin (formulary)] 1 tab PO DAILY Gabapentin [Neurontin] 400 mg PO BID Discharge Medication List Omeprazole [PriLOSEC] 20 mg PO DAILY 05/29/18 [History] Finasteride [Proscar] 5 mg PO HS 06/12/18 [History] Doxazosin [Cardura] 1 mg PO HS 12/05/20 [History] Gabapentin [Neurontin] 400 mg PO BID 04/23/23 [History] Loratadine [Claritin] 10 mg PO DAILY 04/23/23 [History] Multivitamins, Thera [Multivitamin (formulary)] 1 tab PO DAILY 04/23/23 [History] Naproxen Sodium/Pseudoephedrin [Aleve-D Sinus and Cold Caplet] 1 tab PO Q12HR PRN 04/23/23 [History] tadalafiL [Cialis] 20 mg PO DAILY PRN 04/23/23 [History] lisinopriL [Zestril] 30 mg PO DAILY 08/04/23 [History] Aspirin [Adult Low Dose Aspirin EC] 81 mg PO BID #60 tab 08/12/23 [Rx] HYDROcodone/APAP 7.5-325MG [[place] 7.5] 1 each PO Q4HR PRN #42 tab 08/12/23 [Rx] Follow up Appointment(s)/Referral(s): Agusto Jaquez PAC [PHYSICIAN IN HOME [facility]] - 2 Weeks Patient Instructions/Handouts: Knee Replacement (DC) Activity/Diet/Wound Care/Special Instructions: Orthopedic Discharge Instructions: 1. Wound care and infection precautions, keep incision dry and covered while showering, no lotions, creams, moisturizers. No soaking, pools, hot tubs. Do not scrub over incision. 2. Weight-bear as tolerated with walker / cane until follow-up. 3. Ice and elevate when necessary. Do not exceed 20 minutes per hour with ice pack. 4. Utilize compression sleeve until seen at first follow up appointment. 5. Pain meds and anticoagulants per prescription. 6. Pain medication has potential to cause constipation. Increase oral fluid and fiber intake. Contact primary care provider if you have not had a bowel movement within 48 hours after discharge. 7. No anti-inflammatory medication until discussed at first post operative visit, this including Motrin, Aleve, Mobic, Diclofenac 8. Follow up in office at 2 weeks postop with Tramaine Jaquez PA-C/Demetrius Petersen PA-C 9. Follow up with your primary care doctor 7-10 days after discharge. 10. Contact [facility] with any questions, . Wound care instructions: 1. Okay to remove bandage as of 08/18/2023 2. Okay to shower directly over the incision after removal of the dressing Discharge Disposition: HOME WITH HOME HEALTH SERVICES
--- NOTE | 2023-08-12 10:41 | P.CONS ---
History of Present Illness - Reason for Consult Consult date: 08/12/23 Medical management hypertension, gastro esophageal reflux disease Requesting physician: Ronaldo Pham - History of Present Illness This is 63-year-old gentleman with past medical history significant for hypertension, obesity, chronic back pain, gastroesophageal reflux disease, hearing disorder and multiple other medical issues status post right total knee arthroplasty secondary to have right knee osteoarthritis, failing conservative treatment. Tolerated procedure well. PT/ambulating, tolerating exertion well. Denies lightheadedness, dizziness or focal deficits. Pain controlled. Passing flatus. Denies nausea vomiting or diarrhea. Denies chest pain, palpitations or shortness of breath. Maintaining O2 sats in the mid 90s on room air. Afebrile. Review of Systems ROS Statement: Those systems with pertinent positive or pertinent negative responses have been documented in the HPI. ROS Other: All systems not noted in ROS Statement are negative. Past Medical History Past Medical History: GERD/Reflux, Hearing Disorder / Deafness, Hypertension Additional Past Medical History / Comment(s): Diff w/ high freq sounds., low back pain, bulging discs. History of Any Multi-Drug Resistant Organisms: None Reported Past Surgical History: Orthopedic Surgery Additional Past Surgical History / Comment(s): ACL Replacement RIGHT KNEE (1986 IN [place]); removal of "some bolts" in Rt knee. Lt knee scope ., 2018 knee surgery november 2020, right knee replacement 2023 Past Anesthesia/Blood Transfusion Reactions: No Reported Reaction Additional Past Anesthesia/Blood Transfusion Reaction / Comm: . Past Psychological History: No Psychological Hx Reported Smoking Status: Never smoker Past Alcohol Use History: Occasional Past Drug Use History: None Reported - Past Family History Brother(s) Family Medical History: Cancer Additional Family Medical History / Comment(s): Colon cancer, hx exposure to [employer] Medications and Allergies Home Medications Medication Instructions Recorded Confirmed Type Omeprazole [PriLOSEC] 20 mg PO DAILY 05/29/18 08/11/23 History Finasteride [Proscar] 5 mg PO HS 06/12/18 08/11/23 History Doxazosin [Cardura] 1 mg PO HS 12/05/20 08/11/23 History Gabapentin [Neurontin] 400 mg PO BID 04/23/23 08/11/23 History Loratadine [Claritin] 10 mg PO DAILY 04/23/23 08/11/23 History Multivitamins, Thera [Multivitamin 1 tab PO DAILY 04/23/23 08/11/23 History (formulary)] Naproxen Sodium/Pseudoephedrin 1 tab PO Q12HR PRN 04/23/23 08/11/23 History [Aleve-D Sinus and Cold Caplet] tadalafiL [Cialis] 20 mg PO DAILY PRN 04/23/23 08/11/23 History lisinopriL [Zestril] 30 mg PO DAILY 08/04/23 08/11/23 History Aspirin [Adult Low Dose Aspirin EC] 81 mg PO BID #60 tab 08/12/23 Rx HYDROcodone/APAP 7.5-325MG [[place] 1 each PO Q4HR PRN #42 tab 08/12/23 Rx 7.5] Allergies Allergy/AdvReac Type Severity Reaction Status Date / Time No Known Allergies Allergy Verified 08/11/23 08:18 Physical Exam Vitals: Vital Signs Temp Pulse Resp BP Pulse Ox 08/12/23 08:00 97.8 F 83 18 129/78 95 08/12/23 01:56 98.6 F 98 21 136/73 94 L 08/11/23 19:03 98.5 F 111 H 20 157/85 94 L 08/11/23 14:31 97.9 F 96 17 206/80 95 08/11/23 14:05 73 16 165/91 95 08/11/23 13:38 69 16 162/77 94 L 08/11/23 13:12 78 18 162/85 96 08/11/23 12:57 66 18 162/87 95 08/11/23 12:42 64 20 172/93 96 08/11/23 12:27 75 18 161/87 96 08/11/23 12:12 69 22 130/79 98 08/11/23 11:57 97 F L 76 14 131/79 97 Intake and Output 08/11/23 08/12/23 08/12/23 22:59 06:59 14:59 Intake Total 900 Output Total 800 Balance 100 Intake: Oral 900 Output: Urine 800 Other: # Voids 2 PHYSICAL EXAM: VITAL SIGNS: [As above] GENERAL: Alert and oriented x 3, sitting up in bed, no acute distress HEENT: Normocephalic, Conjunctivae normal. eyes normal. NECK: Supple, No JVD. No thyroid enlargement. No LNs CARDIOVASCULAR: S1, S2 regular. No murmur RESPIRATION: Unlabored, equal air entry, CTA. ABDOMEN: Soft, nondistended, nontender . No guarding. +Bowel sounds. LEGS: Right knee dressing clean dry and intact, minimal edema, ecchymosis. no calf tenderness, positive DP pulse NERVOUS SYSTEM: Cranial N 2-12 grossly normal. No focal deficits. Strength and sensation grossly intact. Skin: Warm and dry, no rash noted Assessment and Plan Assessment: Osteoarthritis right knee, status post right total knee arthroplasty Obesity, BMI 30 Gastroesophageal reflux disease Hypertension Plan: Continue on current medication regimen, monitoring and symptomatic treatment. Aggressive pulmonary toileting with incentive spirometer reinforced. PT. Pain management, DVT prophylaxis as per primary/orthopedic surgery with discharge planning in progress for today. Follow-up with PCP in 1 week. Thank you for the consult. The impression and plan of care has been dictated as directed. : I performed a history and examination of this patient, discussed the same with the dictator. I agree with the dictator's note ,documented as a scribe. Any additional findings or plans will be noted.
[2023-08-12] MEDS ORDERED: FINASTERIDE 5 MG TAB PO SCH (21:00)
== END 2023-08-12 09:57 | disposition home health service (06) ==
LOC: OR 07:53 → 4SSUR 14:05 → OR 08-12 09:57
PROVIDERS: ATTEND Orthopaedic Surgery
DX: M17.11 Unilateral primary osteoarthritis, right knee (principal); G89.18 Other acute postprocedural pain; I10 Essential (primary) hypertension; K21.9 Gastro-esophageal reflux disease without esophagitis; E66.9 Obesity, unspecified; Z80.0 Family history of malignant neoplasm of digestive organs; Z79.82 Long term (current) use of aspirin; Z79.899 Other long term (current) drug therapy
CPT/HCPCS: 97161; 64999; 64448; 73560; 27447; C1776; C1713 ×2; C1751; J2250; J1100; J0690 ×2; J2405; J1170 ×3; J2795

== ENCOUNTER → 2024-07-26 | Outpatient (CLI) | payer OTHER ==
--- NOTE | 2024-07-27 06:15 | MR ---
EXAMINATION TYPE: MR shoulder RT wo con DATE OF EXAM: 07/26/2024 9:35 PM COMPARISON: None. CLINICAL INDICATION: Male, 64 years old with history of S49.991XA, Right shoulder pain and difficult to raise arm for 3 weeks IV Contrast: cc (None if empty) TECHNIQUE: Multiplanar, multisequence imaging of the right shoulder is performed without contrast. FINDINGS: Rotator Cuff: Intact infraspinatus tendon. Increased signal through the supraspinatus muscle and tend on with adjacent surrounding fluid superiorly and anteriorly. Heterogeneous subscapularis tendon with adjacent fluid anteriorly. Rotator cuff muscle bulk is preserved. Acromioclavicular Joint: Mild to moderate spurring with mild narrowing and subchondral cystic change. Mild to moderate capsular hypertrophy. Loss of the underlying fat plane is present. Glenohumeral Joint: Small to moderate size joint effusion. Narrowing is present. No significant spurr ing. Labrum: Increased signal superior labrum suggesting degenerative tear coronal image 15. Biceps Tendon: The long head of biceps is in normal location within bicipital groove. Bone marrow signal: No focal abnormal marrow signal is appreciated. Other: No additional significant abnormality is appreciated. IMPRESSION: 1. Tendinosis of the subscapularis tendon. More prominent tendinosis of the supraspinatus tendon. 2. Fairly moderate degenerative changes are present as detailed above. Underlying impingement is susp ected. Correlate clinically. 3. Superior labral tear thought Degenerative in etiology. [facility], , 07/27/2024 6:12 AM
== END | disposition home or self-care (01) ==
LOC: RADMRIMAIN 21:15
PROVIDERS: ATTEND Family Medicine
DX: S49.91XA Unspecified injury of right shoulder and upper arm, initial encounter (principal); M25.811 Other specified joint disorders, right shoulder; M67.813 Other specified disorders of tendon, right shoulder; M75.111 Incomplete rotator cuff tear or rupture of right shoulder, not specified as traumatic

== ENCOUNTER → 2024-08-17 | Outpatient (CLI) | payer OTHER ==
[2024-08-17 19:04] LABS: Basophils # (A) 0.05 X 10*3/uL (0.00-0.10); Basophils % (A) 0.7 %; Eosinophils # (A) 0.08 X 10*3/uL (0.04-0.35); Eosinophils % (A) 1.2 %; HCT 38.1 % (39.6-50.0); HGB 11.8 g/dL (13.0-17.0); Lymphocytes # (A) 2.12 X 10*3/uL (0.90-5.00); Lymphocytes % (A) 31.1 %; MCH 28.1 pg (27.0-32.0); MCV 90.7 FL (80.0-97.0); Mean Platelet Volume 11.1 FL (9.5-12.2); Monocytes # (A) 0.76 X 10*3/uL (0.20-1.00); Monocytes % (A) 11.2 %; NRBC Per 100 WBC 0 X 10*3/uL (0.00-0.01); Neutrophils # (A) 3.78 X 10*3/uL (1.80-7.70); Neutrophils % (A) 55.5 %; Platelet Count 325 X 10*3/uL (140-440); RDW 14.2 % (11.5-14.5); WBC 6.81 X 10*3/uL (4.50-10.00)
[2024-08-17 19:37] LABS: Anion Gap 12.3 mmol/L (4.00-12.00); Carbon Dioxide 25.7 mmol/L (21.6-31.8); Potassium 3.7 mmol/L (3.5-5.5)
== END | disposition home or self-care (01) ==
LOC: LABPAT 07:15
PROVIDERS: ATTEND Orthopaedic Surgery
DX: Z01.818 Encounter for other preprocedural examination (principal); M75.41 Impingement syndrome of right shoulder
CPT/HCPCS: 80051; 85025; 93005

== ENCOUNTER 2024-09-08 05:42 | Day surgery (SDC) | payer OTHER ==
[2024-09-06 09:52] VITALS: BMI 28.5
--- NOTE | 2024-09-07 19:41 | HP ---
HISTORY AND PHYSICAL Surgery is scheduled for 09/08/2024. HISTORY OF PRESENT ILLNESS: Mike Marx is a 64-year-old gentleman seen with progressive right shoulder pain. We discussed options regarding treatment. He elected to proceed with right shoulder arthroscopy. Consent regarding the procedure was obtained. PAST MEDICAL HISTORY: Hypertension, gastroesophageal reflux disease. PAST SURGICAL HISTORY: Right knee arthroscopy with ACL reconstruction. DAILY MEDICATIONS: 1. Lisinopril. 2. Omeprazole. 3. Finasteride. 4. Ibuprofen. ALLERGIES: None. SOCIAL HISTORY: Denies tobacco use. PHYSICAL EVALUATION OF THE RIGHT SHOULDER: Flexion is 70 degrees. Abduction is 50 degrees. External rotation is 30 degrees with pain and weakness. He is tender along the anterolateral acromion rotator cuff insertion. Impingement is positive at 70 degrees. Cross-body adduction sign is positive. Drop-arm sign is positive. Distal neurovascular exam is intact. IMAGING STUDIES: Right shoulder radiographs revealed a type 2 acromion, acromioclavicular joint osteoarthritis, and cystic changes of the greater tuberosity. MRI of right shoulder revealed increased signal throughout the supraspinatus tendon with adjacent surrounding fluid consistent with tendinosis, suspicious for partial tear. Moderate osteoarthritis of the acromioclavicular joint with impingement and a superior labral tear. IMPRESSION: 1. Right shoulder impingement with partial rotator cuff tear. 2. Right shoulder labral tear. 3. Right shoulder acromioclavicular joint osteoarthritis. PLAN: Right shoulder arthroscopy with subacromial decompression, arthroscopic rotator cuff repair, Antonietta procedure, and debridement of labral tear. MMODL / IJN: [id number] /
[2024-09-08] MEDS ORDERED: HYDROmorphone 0.5 MG/0.5 ML SYRINGE IVP PRN (06:15)
[2024-09-08] MEDS: IV FLUID CONTINUATION 1,000 ML IV ONE (06:27)
[2024-09-08] MEDS: ONDANSETRON 4 MG/2 ML VIAL IVP ONE (06:48)
[2024-09-08] MEDS: LACTATED RINGERS 1,000 ML IV SCH (06:49)
[2024-09-08] MEDS: DEXAMETHASONE SOD PHOSPHATE 4 MG/ML 1 ML VIAL IV ONE (06:49)
[2024-09-08] MEDS: MIDAZOLAM 2 MG/2 ML VIAL IV ONE (06:50)
[2024-09-08] MEDS ORDERED: SUCCINYLCHOLINE CHLORIDE 200 MG/10 ML VIAL IV ONE (07:16)
[2024-09-08] MEDS ORDERED: KETOROLAC 15 MG/ML 1 ML VIAL ONE (07:16)
[2024-09-08] MEDS ORDERED: fentaNYL (PF) 50 MCG/ML 2 ML AMP ONE (07:16)
[2024-09-08] MEDS ORDERED: DEXAMETHASONE SOD PHOSPHATE 4 MG/ML 1 ML VIAL ONE (07:16)
[2024-09-08] MEDS ORDERED: LIDOCAINE 1% INJ 10MG/ML (20 ML MDV) ONE (07:16)
[2024-09-08] MEDS ORDERED: ROPIVACAINE 5 MG/ML 30 ML VIAL ONE (07:16)
[2024-09-08] MEDS ORDERED: NEOSTIGMINE 1 MG/ML 10 ML VIAL ONE (07:16)
[2024-09-08] MEDS ORDERED: PHENYLEPHRINE 10 MG/ML VIAL ONE (07:16)
[2024-09-08] MEDS ORDERED: ROCURONIUM 10 MG/ML (5 ML VIAL) IV ONE (07:16)
[2024-09-08] MEDS ORDERED: MIDAZOLAM 2 MG/2 ML VIAL ONE (07:16)
[2024-09-08] MEDS ORDERED: PROPOFOL 10 MG/ML 20 ML VIAL IV ONE (07:16)
[2024-09-08] MEDS ORDERED: GLYCOPYRROLATE 0.2 MG/ML 2 ML VIAL ONE (07:16)
--- NOTE | 2024-09-08 08:08 | P.ANPRN ---
Procedure Note - Anesthesia - Nerve Block Performed Right Interscalene Single Time Out Performed: Yes Date of Procedure: 09/08/24 Procedure Start Time: 06:50 Procedure Stop Time: 06:55 Location of Patient: PreOp Indication: Acute Post-Operative Pain, Analgesia, Requested by Surgeon Sedation Type: Sedate with meaningful contact maintained Preparation: Sterile Prep Position: Sitting Catheter: None Needle Types: Pajunk Needle Gauge: 21 Ultrasound used to visualize needle placement: Yes Ultrasound used to observe medication spread: Yes Injectate: 0.5% Ropivacaine (see comment for volume) ([id number]+Decadron 4mg. (Residenr)) Blood Aspirated: No Pain Paresthesia on Injection Noted: No Resistance on Injection: Normal Image Stored and Saved: Yes Events: Uneventful and Well Tolerated
[2024-09-08] MEDS: LACTATED RINGERS 1,000 ML IV ONE (08:57)
--- NOTE | 2024-09-08 09:16 | P.OP ---
Date of Procedure: 09/08/24 Preoperative Diagnosis: Right shoulder impingement Postoperative Diagnosis: 1. Right shoulder rotator cuff tear 2. Right shoulder impingement 3. Right shoulder partial long head biceps tendon tear 4. Right shoulder acromioclavicular joint osteoarthritis 5. Right shoulder superficial labral tear Procedure(s) Performed: 1. Right shoulder arthroscopic rotator cuff repair 2. Right shoulder arthroscopic subacromial decompression 3. Right shoulder arthroscopic biceps tenodesis 4. Right shoulder arthroscopic Antonietta procedure 5. Right shoulder arthroscopic debridement labral tear Implants: 3Arthrex 4.75 swivel lock anchors 2Arthrex 5.5 swivel lock anchors Anesthesia: GETA, regional (Interscalene block) Surgeon: Ronaldo [employer] Tender #1: Agusto Jaquez Estimated Blood Loss (ml): 7 Pathology: none sent Condition: stable Disposition: PACU Indications for Procedure: 64-year-old gentleman seen with progressive right shoulder pain. After having treatment options discussed, he elected to proceed with arthroscopy. Operative Findings: See description of procedure Description of Procedure: Patient underwent an interscalene block by department of anesthesia. The patient was then taken to the operative suite. The patient underwent a general anesthetic by the department of anesthesia. The patient was placed into a lateral position and secured. There was appropriate padding of the bony prominence. Right shoulder was then prepped and draped in normal sterile orthopedic fashion. We placed the extremity in 10 pounds of longitudinal traction. A posterior incision was now made for a posterior working portal site. The trocar and cannula were inserted into the glenohumeral joint. Arthroscopy was initiated. Spinal needle was now inserted anteriorly, to ascertain the anterior working portal site. An incision was now made in that area, a trocar was inserted followed by a probe. There was partial tearing long head biceps tendon with some hyperemia. There was some superficial tearing of the superior labrum. There were grade I chondromalacia changes of the glenoid fossa without significant tearing. I introduced a motorized shaver and debrided out the superficial labral tear. I inserted a cannula through the anterior portal site and then passed a loop and tack stitch through the biceps tendon. I now released the biceps tendon from the superior labral anchor. With the assistance of Tramaine NAVARRO I punched a hole at the interval for insertion of an anchor. The suture limb was now passed through the eyelet of an Arthrex 4.75 swivel lock anchor. I placed the eyelet into the prepunched hole. I held it in position while Tramaine NAVARRO tensioned the suture and deployed the anchor with good fixation noted. The residual suture limb was now clipped. We had a stable appearing biceps tenodesis. I probed the residual labrum and it was stable. Instruments were now removed from the glenohumeral joint. Utilizing the posterior working portal site, the trocar and cannula were inserted into the subacromial space. Arthroscopy initiated. I made an incision 2 fingerbreadths lateral to the acromion. I introduced my trocar followed by my ArthroCare ablator. I now began ablating thick subacromial bursal tissue, which exposed the undersurface of the anterior acromion. There was diminished subacromial space. There was a very prominent anterior acromion. A motorized bur was introduced and a subacromial decompression was performed. I also excised some osteophytes off the inferior aspect of the distal clavicle. The AC joint was visualized and noted to be fairly arthritic. The motorized bur was introduced in the anterior portal site and a Antonietta procedure was performed without difficulty removing 8 mm of bone off the distal clavicle, decompressing the AC joint nicely. I turned my attention to the rotator cuff. There was a 2.53 cm rotator cuff tear. I debrided the margins getting down to stable tendon tissue. The defect/tear measured about 3 cm but I was able to pulled over the footprint without a lot of tension. I introduced my motorized bur and abraded the footprint area, getting some petechial bleeding. I now made an accessory portal site off the lateral aspect of the acromion. I punched 2 holes medial for medial row fixation with the assistance of Tramaine NAVARRO carefully tapping the punch with a mallet as I held the punch and the camera. I now introduced both Arthrex 4.75 swivel lock anchors into the pre-punched holes and Tramaine NAVARRO tapped them with the mallet as I held anchors and the camera. Tramaine NAVARRO now screwed the anchors in place a while I held the anchor guide and camera. All 8 limbs of suture were now passed through good bites of rotator cuff tendon. I now punched 2 holes for lateral row fixation again I held the punch and camera while Tramaine NAVARRO used a mallet to tap in the punch. We now passed sutures through both anchors and individually I introduced the anchors into the pre-punch holes I held the anchor guide in position with one hand holding the camera with the other hand while Tramaine NAVARRO tensioned the sutures and screwed in the Arthrex 5.5 swivel lock anchors one at a time. All residual suture limbs were now clipped. We had good compression of the tendon along the entire footprint. Instruments now removed from the portal sites. All portal sites were approximated with nylon suture. Sterile dressings were applied followed by a shoulder immobilizer. Agusto NAVARRO assisted in this complex case. The patient was awakened, transferred to a bed, and taken to recovery in stable condition.
[2024-09-08 09:18] VITALS: TEMP 96.8
[2024-09-08 09:48] VITALS: RESP 16
[2024-09-08] MEDS: HYDROcodone/APAP 7.5-325MG 1 EACH TAB PO STA (10:03)
[2024-09-08 10:45] VITALS: BP 126/71; PULSE 64
== END 2024-09-08 11:02 | disposition home or self-care (01) ==
LOC: OR 05:42
PROVIDERS: ATTEND Orthopaedic Surgery
DX: S43.491A Other sprain of right shoulder joint, initial encounter (principal); M75.111 Incomplete rotator cuff tear or rupture of right shoulder, not specified as traumatic; M19.011 Primary osteoarthritis, right shoulder; I10 Essential (primary) hypertension; K21.9 Gastro-esophageal reflux disease without esophagitis; Z98.890 Other specified postprocedural states; Z79.1 Long term (current) use of non-steroidal anti-inflammatories (NSAID); Z79.899 Other long term (current) drug therapy; X58.XXXA Exposure to other specified factors, initial encounter
CPT/HCPCS: 64415; 29828; 29827; 29824; C1713 ×4; J2250; J0330; J1100; J2710; J0690; J2405; J2003; J3010; J2795; J1885; J2704; J2371; J1596